=== PATIENT | female | born 1935 | race Caucasian/White ===

== ENCOUNTER → 2017-06-20 | Outpatient (CLI) | payer OTHER, MEDICAID | LOC: RAD 13:26 | PROVIDERS: ATTEND Internal Medicine | DX: R60.0 Localized edema (principal); M79.89 Other specified soft tissue disorders | CPT/HCPCS: 93306 ==

== ENCOUNTER 2022-02-10 08:44 | Inpatient (IN) ==
--- NOTE | 2022-02-10 09:05 | DR.AMS ---
HPI Time Seen Time Seen by Provider: 02/10/22 09:15 HPI Comment HPI Comment: PATIENT IS 86YR OLD FEMALE IN ER FROM [facility] WITH INCREASING COVID-19 Coronavirus risk:travel/contact w/high risk person: No Has patient experienced Coronavirus symptoms: No Reviewed Nurses Notes Reviewed: Yes Source History Provided: Parent and Skilled Nursing Mode of Arrival Mode of Arrival: Stretcher PMH PMH Past Medical History: Alzheimers, Anxiety, Arthritis, Coronary Artery Disease, Dementia, Depression, Dyslipidemia, Hypertension and Renal Disease Past Surgical History: Yes Surgical History: Unknown Social History Do you use any recreational Drugs:: No ROS Review of Systems Constitutional: See HPI, Weakness and Fatigue; negative Fever Eyes: No Symptoms Reported and See HPI ENTM: No Symptoms Reported and See HPI Respiratoy: See HPI and Short of Breath Cardiovascular: No Symptoms Reported and See HPI PE Vitals Vital Signs: Temp Pulse Resp BP BP Pulse Ox O2 Del Method 02/10/22 12:45 51 L 27 H 02/10/22 12:31 112/60 02/10/22 12:31 52 L 28 H 02/10/22 12:30 52 L 29 H 02/10/22 12:15 124 H 39 H 02/10/22 12:00 138/64 02/10/22 12:15 52 L 02/10/22 12:00 60 33 H 02/10/22 11:45 127 H 31 H 02/10/22 11:45 140/62 02/10/22 11:30 109 H 40 H 97 02/10/22 12:00 94.4 F L 02/10/22 12:01 138/64 02/10/22 11:15 47 L 29 H 97 02/10/22 11:15 141/64 02/10/22 11:13 55 L 26 H 97 02/10/22 11:13 160/78 02/10/22 11:12 48 L 26 H 98 02/10/22 11:12 127/60 02/10/22 11:00 50 L 31 H 98 02/10/22 10:45 41 L 25 H 99 02/10/22 10:38 44 L 22 02/10/22 10:38 110/56 02/10/22 10:30 39 L 20 99 02/10/22 10:15 37 L 35 H 98 10/08/22 10:02 102/50 02/10/22 10:02 38 L 22 99 02/10/22 10:00 39 L 22 99 02/10/22 09:45 69 23 99 02/10/22 09:31 22 98 02/10/22 09:31 117/59 02/10/22 09:30 99 02/10/22 09:17 42 L 21 99 02/10/22 08:45 92.0 F L 40 L 20 135/82 98 Room Air 02/08/22 19:12 113/86 General Limitations: No Limitations General Appearance: Alert and In No Apparent Distress Head Head Exam: Normal Inspection Head Exam Physical: Other (NONE NOTED.) Eyes Eye exam: Normal Appearance and PERRL; negative Scleral Icterus or Conjunctival Injection Pupils: Regular, Round: Bilateral and Reactive: Bilateral ENT ENT Exam: Normal Exam, Normal Oropharynx, Normal External Ear Exam and TM's Normal Bilaterally External Ear Exam: negative Normal External Inspection or Mastoid Tenderness TM/Canal Exam: Bilateral: Normal Nose Exam: Normal Nose Exam Mouth Exam: Normal Inspection; negative Lip Swelling or Tongue Swelling Throat Exam: Normal Inspection; negative Tonsillar Erythema, Tonsillomegaly or Tonsillar Exudate Neck Neck Exam: Normal Inspection and Trachea Midline; negative Tenderness Chest Chest Inspection: Normal Inspection and Symmetric Chest Wall Rise; negative Tenderness Respiratory Respiratory Exam: Normal Lung Sounds Bilat; negative Accessory Muscle Use, Chest Wall Tenderness or Respiratory Distress Respiratory Exam: Bilateral: Rhonchi Cardiovascular Cardiovascular Exam: Regular Rate, Normal Rhythm and Normal Heart Sounds; negative Systolic Murmur or Diastolic Murmur Abdominal Exam Abdominal Exam: Normal Inspection, Normal Bowel Sounds and Soft; negative Tenderness Extremities Extremities Exam: Normal Inspection and Normal Capillary Refill Back Back Exam: Normal Inspection; negative (R) CVA Tenderness or (L) CVA Tenderness Psychological Psychiatric Exam: Normal Affect Skin Skin Exam: Intact ROR Labs Reviewed Laboratory Results Reviewed?: Yes Result Diagrams: 02/11/22 04:55 02/11/22 04:05 Laboratory: WBC 5.8 X10^3/uL (3.6-10.0) 02/10/22 09:34 RBC 4.15 X10^6/uL (3.5-5.4) 02/10/22 09:34 Hgb 11.4 g/dL (12.0-16.0) L 02/10/22 09:34 Hct 34.8 % (36.0-47.0) L 02/10/22 09:34 MCV 83.9 fL (80.0-100.0) 02/10/22 09:34 MCH 27.5 pg (27.0-34.0) 02/10/22 09:34 MCHC 32.7 g/dL (33.0-35.0) L 02/10/22 09:34 RDW 16.0 % (11.6-16.5) 02/10/22 09:34 Plt Count 186 X10^3/uL (150.0-450.0) 02/10/22 09:34 MPV 9.2 fL (7.4-11.0) 02/10/22 09:34 Neut % (Auto) 76.4 % (42.0-75.0) H 02/10/22 09:34 Lymph % (Auto) 12.4 % (21.0-51.0) L 02/10/22 09:34 [place] % (Auto) 8.1 % (0.0-13.0) 02/10/22 09:34 Eos % (Auto) 2.4 % (0.9-2.9) 02/10/22 09:34 Baso % (Auto) 0.7 % (0.2-1.0) 02/10/22 09:34 Neut # (Auto) 4.4 x10^3/uL (2.2-4.8) 02/10/22 09:34 Lymph # (Auto) 0.7 X10^3/uL (1.3-2.9) L 02/10/22 09:34 [place] # (Auto) 0.5 x10^3/uL (0.3-0.8) 02/10/22 09:34 Eos # (Auto) 0.1 x10^3/uL (0.0-0.2) 02/10/22 09:34 Baso # (Auto) 0.0 X10^3/uL (0.0-0.1) 02/10/22 09:34 Absolute Nucleated RBC 0.2 /100WBC 02/10/22 09:34 Sodium 137 mmol/L (136-145) 02/10/22 09:34 Corrected Sodium TNP 02/10/22 09:34 Potassium 5.3 mmol/L (3.5-5.1) H 02/10/22 09:34 Chloride 107 mmol/L (98-107) 02/10/22 09:34 Carbon Dioxide 26.3 mmol/L (21-32) 02/10/22 09:34 BUN 31 mg/dL (7-18) H 02/10/22 09:34 Creatinine 1.21 mg/dL (0.55-1.02) H 02/10/22 09:34 Est GFR (MDRD) Af Amer 55 (>60) L 02/10/22 09:34 Est GFR (MDRD) Non-Af 45 (>60) L 02/10/22 09:34 Glucose 82 mg/dL (65-99) 02/10/22 09:34 Lactic Acid 1.1 mmol/L (0.4-2.0) 02/10/22 09:34 Calcium 8.7 mg/dL (8.5-10.1) 02/10/22 09:34 Corrected Calcium 9.7 mg/dL (8.5-10.1) 02/10/22 09:34 Total Bilirubin 0.20 mg/dL (0.2-1.0) 02/10/22 09:34 AST 34 Units/L (15-37) 02/10/22 09:34 ALT 50 Units/L (12-78) 02/10/22 09:34 Alkaline Phosphatase 137 Units/L (46-116) H 02/10/22 09:34 Creatine Kinase 50 Units/L (26-192) 02/10/22 09:34 Troponin I High Sens 58.3 ng/L (4.0-60.0) 02/10/22 09:34 B-Natriuretic Peptide 463 pg/mL (0-79) H 02/10/22 09:34 Total Protein 6.9 g/dL (6.4-8.2) 02/10/22 09:34 Albumin 2.8 g/dL (3.4-5.0) L 02/10/22 09:34 Globulin 4.1 g/dL (2.5-4.5) 02/10/22 09:34 Albumin/Globulin Ratio 0.7 Ratio (1.1-2.1) L 02/10/22 09:34 XRAY XRAY Interpreted by: Radiologist (REPORT NOTED.) and Self EKG Rate: 41 [place]: Normal Rhythm: SB Block: None Hypertrophy: None ST: Nonsp Opioid Opioid Risk Tool Age (Gonzalez box if 16-45): No History of Preadolescent Sexual Abuse: No Total: 0 Total Score Risk Category: Low Risk Copyright: Morales LR predicting aberrant behaviors Discharge Plan Diagnosis Discharge Problem: Pneumonia, Hypothermia, Bradycardia, severe sinus, Altered mental status Discharge Plan Patient Disposition: 09 ADMITTED INPATIENT Condition: Stable
[2022-02-10 09:47] LABS: BASOPHILS % (AUTO) 0.7 % (0.2-1.0); EOSINOPHILS # (AUTO) 0.1 x10^3/uL (0.0-0.2); EOSINOPHILS % (AUTO) 2.4 % (0.9-2.9); HEMATOCRIT 34.8 % (36.0-47.0); HEMOGLOBIN 11.4 g/dL (12.0-16.0); LYMPHOCYTES # (AUTO) 0.7 X10^3/uL (1.3-2.9); LYMPHOCYTES % (AUTO) 12.4 % (21.0-51.0); MEAN CORPUSCULAR HEMOGLOBIN 27.5 pg (27.0-34.0); MEAN CORPUSCULAR HGB CONC 32.7 g/dL (33.0-35.0); MEAN CORPUSCULAR VOLUME 83.9 fL (80.0-100.0); MEAN PLATELET VOLUME 9.2 fL (7.4-11.0); MONOCYTES # (AUTO) 0.5 x10^3/uL (0.3-0.8); MONOCYTES % (AUTO) 8.1 % (0.0-13.0); NEUTROPHILS # (AUTO) 4.4 x10^3/uL (2.2-4.8); NEUTROPHILS % (AUTO) 76.4 % (42.0-75.0); RED BLOOD COUNT 4.15 X10^6/uL (3.5-5.4); WHITE BLOOD COUNT 5.8 X10^3/uL (3.6-10.0)
[2022-02-10] MEDS ORDERED: NS 1,000 ML IV 1,000 ML ONE (09:56)
[2022-02-10 10:01] LABS: ALANINE AMINOTRANSFERASE 50 Units/L (12-78); ALBUMIN 2.8 g/dL (3.4-5.0); ALKALINE PHOSPHATASE 137 Units/L (46-116); ASPARTATE AMINO TRANSFERASE 34 Units/L (15-37); BLOOD UREA NITROGEN 31 mg/dL (7-18); CALCIUM 8.7 mg/dL (8.5-10.1); CARBON DIOXIDE 26.3 mmol/L (21-32); CHLORIDE 107 mmol/L (98-107); COR CA(FOR HYPOALB) 9.7 mg/dL (8.5-10.1); CREATINE KINASE 50 Units/L (26-192); CREATININE 1.21 mg/dL (0.55-1.02); SODIUM 137 mmol/L (136-145); TOTAL PROTEIN 6.9 g/dL (6.4-8.2); eGFR NON BLACK RACES 45 (>60)
[2022-02-10] MEDS: NS 1,000 ML IV 1,000 ML IV SCH ×3 (10:04→21:04)
[2022-02-10 10:50] LABS: LACTIC ACID 1.1 mmol/L (0.4-2.0)
--- NOTE | 2022-02-10 11:11 | RAD ---
HISTORYSOB, SLOW TO RESPOND HTN, ORTHOSTUDYCHEST, 1 [id number]/06/2022.FINDINGSThe trachea is midline. The cardiac silhouette is enlarged but stable. The pulmonary blood flow is congested. There is coarsening of the interstitial markings suggestive of edema mid there continues to be a nonspecific central right upper lobe opacity. There is increased opacity along the left hemidiaphragm. There is no convincing pleural effusion. The bony thorax is unremarkable.IMPRESSIONIncreasing interstitial prominence with persistent right upper lobe and new left base opacities.Electronically signed by: Winston Mcneill (Feb 10, 2022 11:09:47)
[2022-02-10] MEDS ORDERED: ROCEPHIN 1 GRAM IV PREMIX 1 G/50 ML IV.SOLN. IV ONE (12:06)
[2022-02-10] MEDS ORDERED: ROCEPHIN VIAL 1 GRAM ONE (12:09)
[2022-02-10] MEDS ORDERED: NS 100 ML IV 100 ML ONE (12:09)
[2022-02-10] MEDS: ZOSYN VIAL 3.375 GRAMS 3.375 G in NS 100 ML IV 100 ML IV SCH ×2 (16:30→21:31)
[2022-02-10] MEDS: DUONEB 0.5 MG/3 MG (3 mL) NEB SCH ×2 (16:48→21:00)
[2022-02-10] MEDS ORDERED: PHARMACY CONSULT LTC MEDICATIONS XX SCH (17:00)
[2022-02-10] MEDS: PULMICORT NEB TX 0.5 MG NEB SCH (21:00)
[2022-02-10 22:05] LABS: BILIRUBIN,URINE NEGATIVE (NEGATIVE); BLOOD/HEMOGLOBIN,URINE NEGATIVE (NEGATIVE); GLUCOSE, URINE NEGATIVE (NEGATIVE); KETONES,URINE NEGATIVE (NEGATIVE); LEUKOCYTE ESTERASE ,URINE NEGATIVE (NEGATIVE); NITRITES,URINE NEGATIVE (NEGATIVE); PROTEIN,URINE NEGATIVE (NEGATIVE); UROBILINOGEN,URINE NORMAL (NORMAL)
[2022-02-10 22:06] LABS: APPEARANCE,URINE CLEAR (CLEAR); COLOR,URINE PALE YELLOW (YELLOW)
[2022-02-11] MEDS: DUONEB 0.5 MG/3 MG (3 mL) NEB SCH ×6 (01:06→20:20)
[2022-02-11] MEDS: NS 1,000 ML IV 1,000 ML IV SCH ×3 (03:44→20:21)
[2022-02-11] MEDS: ZOSYN VIAL 3.375 GRAMS 3.375 G in NS 100 ML IV 100 ML IV SCH ×3 (05:18→20:59)
[2022-02-11 05:43] LABS: BASOPHILS % (AUTO) 0.4 % (0.2-1.0); EOSINOPHILS # (AUTO) 0.1 x10^3/uL (0.0-0.2); EOSINOPHILS % (AUTO) 0.6 % (0.9-2.9); HEMOGLOBIN 10.5 g/dL (12.0-16.0); LYMPHOCYTES % (AUTO) 12.5 % (21.0-51.0); MEAN CORPUSCULAR HEMOGLOBIN 27.3 pg (27.0-34.0); MEAN CORPUSCULAR HGB CONC 32.8 g/dL (33.0-35.0); MEAN CORPUSCULAR VOLUME 83.1 fL (80.0-100.0); MEAN PLATELET VOLUME 9.7 fL (7.4-11.0); MONOCYTES % (AUTO) 12.6 % (0.0-13.0); NEUTROPHILS # (AUTO) 5.9 x10^3/uL (2.2-4.8); NEUTROPHILS % (AUTO) 73.9 % (42.0-75.0); RED BLOOD COUNT 3.86 X10^6/uL (3.5-5.4); RED CELL DISTRIBUTION WIDTH 16.2 % (11.6-16.5); WHITE BLOOD COUNT 7.9 X10^3/uL (3.6-10.0)
[2022-02-11 05:57] LABS: ALANINE AMINOTRANSFERASE 38 Units/L (12-78); ALBUMIN 2.6 g/dL (3.4-5.0); ALKALINE PHOSPHATASE 119 Units/L (46-116); ASPARTATE AMINO TRANSFERASE 27 Units/L (15-37); BLOOD UREA NITROGEN 30 mg/dL (7-18); CALCIUM 8.1 mg/dL (8.5-10.1); CARBON DIOXIDE 25.5 mmol/L (21-32); CHLORIDE 110 mmol/L (98-107); COR CA(FOR HYPOALB) 9.2 mg/dL (8.5-10.1); CREATININE 1.77 mg/dL (0.55-1.02); SODIUM 141 mmol/L (136-145); TOTAL PROTEIN 6.4 g/dL (6.4-8.2); eGFR NON BLACK RACES 29 (>60)
[2022-02-11] MEDS: PULMICORT NEB TX 0.5 MG NEB SCH ×2 (08:45→20:20)
[2022-02-11] MEDS: VSL#3 PO SCH (10:10)
[2022-02-11] MEDS: LOPRESSOR TAB 25 MG PO SCH ×2 (11:10→20:20)
[2022-02-11] MEDS: LASIX PO SCH (11:10)
--- NOTE | 2022-02-11 14:01 | DR.H&P ---
H&P History & Physical for Day of: H&P Date: 02/11/22 Chief Complaint Chief Complaint: Altered mental status Shortness of breath Allergies Allergies Allergy/AdvReac Type Severity Reaction Status Date / Time codeine Allergy Verified 01/06/20 16:25 History of Present Illness History of Present Illness: Pt is a 86 year old female presenting from with altered mental status and shortness of breath. In the ED, she was found to have pneumonia and was placed on supplemental oxygen. Labs/imaging: Wbc 7.9, Hgb 10.5, Plt 186, Na 141, K 5.3, Creatinine 1.77, Glucose 75, UA negative, COVID/RSV/Influenza negative, Blood culture pending, CXR was obtained that reavealed: Increasing interstitial prominence with persistent right upper lobe and new left base opacities. She was started on IVF NS@KVO, antibiotics: IV Zosyn q8h, and supplemental oxygen. She is currently requiring 2L nasal cannula. Order scheduled bronchodilators. Will wean/titrate supplemental oxygen as tolerated. Restart home medications. Continue to closely monitor and follow up labs/imaging. Past Medical History Past Medical History: Alzheimers, Anxiety, Arthritis, Coronary Artery Disease, Dementia, Depression, Dyslipidemia, Hypertension and Renal Disease Past Surgical History Surgical History: Ortho Surgery Social History Does patient currently use any type of tobacco product: No Have you used tobacco products in the last 12 months: No Type of Tobacco Use: None Does any household member use tobacco: No Alcohol Use: None Drug Use: None Medications Home Medications: codeine Allergy (Verified 01/06/20 16:25) Labs Result Diagrams: 02/12/22 04:45 02/12/22 04:45 Labs: Laboratory WBC 7.9 X10^3/uL (3.6-10.0) 02/11/22 04:55 RBC 3.86 X10^6/uL (3.5-5.4) 02/11/22 04:55 Hgb 10.5 g/dL (12.0-16.0) L 02/11/22 04:55 Hct 32.0 % (36.0-47.0) L 02/11/22 04:55 MCV 83.1 fL (80.0-100.0) 02/11/22 04:55 MCH 27.3 pg (27.0-34.0) 02/11/22 04:55 MCHC 32.8 g/dL (33.0-35.0) L 02/11/22 04:55 RDW 16.2 % (11.6-16.5) 02/11/22 04:55 Plt Count 186 X10^3/uL (150.0-450.0) 02/11/22 04:55 MPV 9.7 fL (7.4-11.0) 02/11/22 04:55 Neut % (Auto) 73.9 % (42.0-75.0) 02/11/22 04:55 Lymph % (Auto) 12.5 % (21.0-51.0) L 02/11/22 04:55 [place] % (Auto) 12.6 % (0.0-13.0) 02/11/22 04:55 Eos % (Auto) 0.6 % (0.9-2.9) L 02/11/22 04:55 Baso % (Auto) 0.4 % (0.2-1.0) 02/11/22 04:55 Neut # (Auto) 5.9 x10^3/uL (2.2-4.8) H 02/11/22 04:55 Lymph # (Auto) 1.0 X10^3/uL (1.3-2.9) L 02/11/22 04:55 [place] # (Auto) 1.0 x10^3/uL (0.3-0.8) H 02/11/22 04:55 Eos # (Auto) 0.1 x10^3/uL (0.0-0.2) 02/11/22 04:55 Baso # (Auto) 0.0 X10^3/uL (0.0-0.1) 02/11/22 04:55 Absolute Nucleated RBC 0.1 /100WBC 02/11/22 04:55 Sodium 141 mmol/L (136-145) 02/11/22 04:05 Corrected Sodium TNP 02/11/22 04:05 Potassium 5.3 mmol/L (3.5-5.1) H 02/11/22 04:05 Chloride 110 mmol/L (98-107) H 02/11/22 04:05 Carbon Dioxide 25.5 mmol/L (21-32) 02/11/22 04:05 BUN 30 mg/dL (7-18) H 02/11/22 04:05 Creatinine 1.77 mg/dL (0.55-1.02) H 02/11/22 04:05 Est GFR (MDRD) Af Amer 35 (>60) L 02/11/22 04:05 Est GFR (MDRD) Non-Af 29 (>60) L 02/11/22 04:05 Glucose 75 mg/dL (65-99) 02/11/22 04:05 Lactic Acid 1.1 mmol/L (0.4-2.0) 02/10/22 09:34 Calcium 8.1 mg/dL (8.5-10.1) L 02/11/22 04:05 Corrected Calcium 9.2 mg/dL (8.5-10.1) 02/11/22 04:05 Total Bilirubin 0.30 mg/dL (0.2-1.0) 02/11/22 04:05 AST 27 Units/L (15-37) 02/11/22 04:05 ALT 38 Units/L (12-78) 02/11/22 04:05 Alkaline Phosphatase 119 Units/L (46-116) H 02/11/22 04:05 Creatine Kinase 50 Units/L (26-192) 02/10/22 09:34 Troponin I High Sens 58.3 ng/L (4.0-60.0) 02/10/22 09:34 B-Natriuretic Peptide 463 pg/mL (0-79) H 02/10/22 09:34 Total Protein 6.4 g/dL (6.4-8.2) 02/11/22 04:05 Albumin 2.6 g/dL (3.4-5.0) L 02/11/22 04:05 Globulin 3.8 g/dL (2.5-4.5) 02/11/22 04:05 Albumin/Globulin Ratio 0.7 Ratio (1.1-2.1) L 02/11/22 04:05 Specimen Type Catherized urine 02/10/22 21:46 Urine Color Pale yellow (YELLOW) 02/10/22 21:46 Urine Appearance Clear (CLEAR) 02/10/22 21:46 Urine pH 8.0 (5.0 - 8.0) 02/10/22 21:46 Ur Specific [place] 1.020 (1.000-1.030) 02/10/22 21:46 Urine Protein Negative (NEGATIVE) 02/10/22 21:46 Urine Glucose (UA) Negative (NEGATIVE) 02/10/22 21:46 Urine Ketones Negative (NEGATIVE) 02/10/22 21:46 Urine Blood Negative (NEGATIVE) 02/10/22 21:46 Urine Nitrite Negative (NEGATIVE) 02/10/22 21:46 Urine Bilirubin Negative (NEGATIVE) 02/10/22 21:46 Urine Urobilinogen Normal (NORMAL) 02/10/22 21:46 Ur Leukocyte Esterase Negative (NEGATIVE) 02/10/22 21:46 SARS-CoV-2 (PCR) Negative (NEGATIVE) 02/10/22 13:12 Influenza Type A (PCR) Negative (NEGATIVE) 02/10/22 13:12 Influenza Type B (PCR) Negative (NEGATIVE) 02/10/22 13:12 RSV (PCR) Negative (NEGATIVE) 02/10/22 13:12 Review of Systems Constitutional: Weakness Eyes: No Symptoms Reported ENT: No Symptoms Reported Respiratory: Cough and Shortness of Breath Cardiovascular: No Symptoms Reported Gastrointestinal: No Symptoms Reported Genitourinary: No Symptoms Reported Musculoskeletal: No Symptoms Reported Skin: No Symptoms Reported Neurological: Confusion Physical Exam Vital Signs: Temperature 97.5 F Pulse Rate [Left Brachial] 75 Pulse Rate 78 Respiratory Rate 28 Blood Pressure [Left Arm] 129/61 Blood Pressure 113/55 O2 Sat by Pulse Oximetry 98 Oriented: Other (intermittent confusion, history of dementia) Eyes: Normal Ear: Normal Nose: Normal Throat: Normal Respiratory: Diminished Throughout and Rhonchi Throughout Cardiovascular: Normal : Normal Auscultation: Bowel Sounds: Normal Palpation: Normal Tenderness: Normal Skin: Normal Musculoskeletal: Normal Assessment/Plan (1) Pneumonia: Status: Acute Plan: IV antibiotics Supplemental oxygen Bronchodilators (2) Altered mental status: Status: Acute Review H&P Reviewed: Yes Patient was examined?: Yes
[2022-02-11] MEDS: ARICEPT TAB 5 MG PO SCH (20:19)
[2022-02-11] MEDS: NAMENDA TAB 10 MG PO SCH (20:20)
[2022-02-11] MEDS: COLACE CAP 100 MG PO SCH (20:20)
[2022-02-11] MEDS: LIPITOR TAB 10 MG PO SCH (20:20)
[2022-02-12] MEDS: DUONEB 0.5 MG/3 MG (3 mL) NEB SCH ×6 (00:35→20:30)
[2022-02-12 05:06] LABS: BASOPHILS # (AUTO) 0.1 X10^3/uL (0.0-0.1); BASOPHILS % (AUTO) 0.9 % (0.2-1.0); EOSINOPHILS # (AUTO) 0.1 x10^3/uL (0.0-0.2); HEMOGLOBIN 9.9 g/dL (12.0-16.0); LYMPHOCYTES # (AUTO) 0.9 X10^3/uL (1.3-2.9); LYMPHOCYTES % (AUTO) 12.6 % (21.0-51.0); MEAN CORPUSCULAR HEMOGLOBIN 27.4 pg (27.0-34.0); MEAN CORPUSCULAR HGB CONC 33.2 g/dL (33.0-35.0); MEAN CORPUSCULAR VOLUME 82.8 fL (80.0-100.0); MEAN PLATELET VOLUME 9.3 fL (7.4-11.0); MONOCYTES # (AUTO) 0.9 x10^3/uL (0.3-0.8); MONOCYTES % (AUTO) 12.7 % (0.0-13.0); NEUTROPHILS % (AUTO) 71.8 % (42.0-75.0); RED BLOOD COUNT 3.63 X10^6/uL (3.5-5.4); RED CELL DISTRIBUTION WIDTH 16.2 % (11.6-16.5); WHITE BLOOD COUNT 6.9 X10^3/uL (3.6-10.0)
[2022-02-12 05:21] LABS: ALANINE AMINOTRANSFERASE 36 Units/L (12-78); ALBUMIN 2.7 g/dL (3.4-5.0); ALKALINE PHOSPHATASE 116 Units/L (46-116); ASPARTATE AMINO TRANSFERASE 22 Units/L (15-37); BLOOD UREA NITROGEN 27 mg/dL (7-18); CALCIUM 8.5 mg/dL (8.5-10.1); CARBON DIOXIDE 26.4 mmol/L (21-32); CHLORIDE 108 mmol/L (98-107); COR CA(FOR HYPOALB) 9.5 mg/dL (8.5-10.1); CREATININE 1.58 mg/dL (0.55-1.02); SODIUM 140 mmol/L (136-145); TOTAL PROTEIN 6.7 g/dL (6.4-8.2); eGFR NON BLACK RACES 33 (>60)
[2022-02-12] MEDS: NS 1,000 ML IV 1,000 ML IV SCH ×3 (06:07→21:46)
[2022-02-12] MEDS: ZOSYN VIAL 3.375 GRAMS 3.375 G in NS 100 ML IV 100 ML IV SCH ×3 (06:07→21:46)
--- NOTE | 2022-02-12 08:01 | RAD ---
HISTORYPneumonia SOBSTUDYPortable AP [id number]/08/2022FINDINGSHeart size is stable, upper-normal in transverse diameter. Similar mild elevation left diaphragm. Nonspecific interstitial prominence in the left lower lung accentuated by diaphragm elevation. The right chest is clear. There is no definite consolidation or pleural effusion.IMPRESSIONSimilar borderline cardiomegaly. Mild subsegmental atelectasis/infiltrate in the left base, accentuated by the adjacent left diaphragm elevation. No new abnormality identified.Electronically signed by: LUCIO PORTER (Feb 12, 2022 08:00:21)
[2022-02-12] MEDS: PULMICORT NEB TX 0.5 MG NEB SCH ×2 (08:40→20:30)
[2022-02-12] MEDS: LOPRESSOR TAB 25 MG PO SCH ×2 (09:43→20:51)
[2022-02-12] MEDS: ASPIRIN EC 81 MG PO SCH (09:44)
[2022-02-12] MEDS: LOVENOX INJ 40 MG SYR SC SCH (09:45)
[2022-02-12] MEDS: LASIX PO SCH (09:45)
[2022-02-12] MEDS: COLACE CAP 100 MG PO SCH ×2 (09:45→20:50)
[2022-02-12] MEDS: NAMENDA TAB 10 MG PO SCH ×2 (09:46→20:51)
[2022-02-12] MEDS: NORVASC TAB 5 MG PO SCH (09:46)
[2022-02-12] MEDS: VSL#3 PO SCH (09:46)
[2022-02-12] MEDS: ARICEPT TAB 5 MG PO SCH (20:50)
[2022-02-12] MEDS: LIPITOR TAB 10 MG PO SCH (20:50)
[2022-02-13] MEDS: DUONEB 0.5 MG/3 MG (3 mL) NEB SCH ×6 (00:16→20:40)
[2022-02-13] MEDS: NS 1,000 ML IV 1,000 ML IV SCH (05:18)
[2022-02-13] MEDS: ZOSYN VIAL 3.375 GRAMS 3.375 G in NS 100 ML IV 100 ML IV SCH ×3 (05:19→22:18)
[2022-02-13 06:07] LABS: BASOPHILS # (AUTO) 0.1 X10^3/uL (0.0-0.1); BASOPHILS % (AUTO) 0.9 % (0.2-1.0); EOSINOPHILS # (AUTO) 0.3 x10^3/uL (0.0-0.2); EOSINOPHILS % (AUTO) 3.7 % (0.9-2.9); HEMATOCRIT 32.3 % (36.0-47.0); HEMOGLOBIN 10.7 g/dL (12.0-16.0); LYMPHOCYTES # (AUTO) 1.2 X10^3/uL (1.3-2.9); LYMPHOCYTES % (AUTO) 14.2 % (21.0-51.0); MEAN CORPUSCULAR HEMOGLOBIN 27.6 pg (27.0-34.0); MEAN CORPUSCULAR HGB CONC 33.2 g/dL (33.0-35.0); MEAN CORPUSCULAR VOLUME 83.2 fL (80.0-100.0); MEAN PLATELET VOLUME 9.5 fL (7.4-11.0); MONOCYTES # (AUTO) 0.8 x10^3/uL (0.3-0.8); MONOCYTES % (AUTO) 9.9 % (0.0-13.0); NEUTROPHILS # (AUTO) 5.9 x10^3/uL (2.2-4.8); NEUTROPHILS % (AUTO) 71.3 % (42.0-75.0); RED BLOOD COUNT 3.89 X10^6/uL (3.5-5.4); RED CELL DISTRIBUTION WIDTH 16.2 % (11.6-16.5); WHITE BLOOD COUNT 8.3 X10^3/uL (3.6-10.0)
[2022-02-13 06:24] LABS: ALANINE AMINOTRANSFERASE 38 Units/L (12-78); ALKALINE PHOSPHATASE 122 Units/L (46-116); ASPARTATE AMINO TRANSFERASE 30 Units/L (15-37); BLOOD UREA NITROGEN 27 mg/dL (7-18); CALCIUM 8.9 mg/dL (8.5-10.1); CHLORIDE 105 mmol/L (98-107); COR CA(FOR HYPOALB) 9.7 mg/dL (8.5-10.1); CREATININE 1.63 mg/dL (0.55-1.02); SODIUM 138 mmol/L (136-145); TOTAL PROTEIN 7.2 g/dL (6.4-8.2); eGFR NON BLACK RACES 32 (>60)
--- NOTE | 2022-02-13 07:31 | RAD ---
HISTORYPneumonia, shortness of breathSTUDYChest AP [id number]/10/2022FINDINGSPati ent is rotated to the right. Heart remains enlarged. No definite congestive heart failure is identified. The aorta is calcified and mildly ectatic. Interstitial lung changes are present bilaterally left greater than right not significantly changed from the prior examination. There is questionable abnormal parenchymal density medially in the right upper lobe. Pneumonia is not excluded. There is also some widening of the upper mediastinum possibly vascular in origin however other etiologies are not excluded. Chest CT with contrast is recommended for further evaluation. Left hemidiaphragm is chronically elevated. No pleural effusions are identified. 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 Chest CT with contrast is recommended for further evaluationElectronically signed by: DAMION IBRAHIM (Feb 13, 2022 07:30:13)
[2022-02-13] MEDS: PULMICORT NEB TX 0.5 MG NEB SCH ×2 (08:30→20:40)
[2022-02-13] MEDS: LOPRESSOR TAB 25 MG PO SCH ×2 (08:45→22:17)
[2022-02-13] MEDS: LASIX PO SCH (08:45)
[2022-02-13] MEDS: VSL#3 PO SCH (08:45)
[2022-02-13] MEDS: NORVASC TAB 5 MG PO SCH (08:45)
[2022-02-13] MEDS: ASPIRIN EC 81 MG PO SCH (08:45)
[2022-02-13] MEDS: COLACE CAP 100 MG PO SCH ×2 (08:45→22:16)
[2022-02-13] MEDS: NAMENDA TAB 10 MG PO SCH ×2 (08:45→22:16)
--- NOTE | 2022-02-13 12:18 | PCM.PROG ---
Progress Note - Progress Note for Day of Date of Exam: 02/12/22 - Subjective Subjective: IS A 86 YEAR OLD PATIENT OF OURS. SHE IS A RESIDENT OF [facility]. SHE WAS ADMITTED INPATIENT STATUS FOR TREATMENT OF PNEUMONIA, HYPOTHERMIA, BRADYCARDIA, AND AMS. TODAY, SHE IS LAYING IN BED WITH EYES CLOSED ON MORNING ROUNDS. SHE OPENS EYES TO VERBAL STIMULI. SHE COMPLAINS OF WEAKNESS AND SHORTNESS OF BREATH THIS MORNING. ON EXAMINATION, HEART IS REGULAR IN RATE AND RHYTHM. BILATERAL LUNGS ARE NOTED WITH SCATTERED WHEEZING AND RHONCHI THROUGHOUT. ABDOMEN IS ROUND, SOFT, AND NON-TENDER WITH NORMAL BOWEL SOUNDS NOTED IN ALL QUADRANTS. 1+ PITTING EDEMA NOTED TO LOWER EXTREMITIES. HER VITALS THIS MORNING ARE: 97.6-68-20-99%-154/70. SHE IS CURRENTLY UTILIZING OX YGEN VIA NASAL CANNULA AT 2 LPM. LABS WERE OBTAINED. WBC 6.9, RBC 3.63, HGB 9.9, HCT 30.0, SODIUM 140, POTASSIUM 5.0, CHLORIDE 108, BUN 27, CREATININE 1.58, GLUCOSE 60, CALCIUM 8.5, AST 22, ALT 36, ALK PHOS 116, BNP 213, TOTAL PROTEIN 6.7, ALBUMIN 2.7. BLOOD CULTURES ARE PENDING. A CHEST XRAY WAS OBTAINED AND REVEALED: Similar borderline cardiomegaly. Mild subsegmental atelectasis/infiltrate in the left base, accentuated by the adjacent left diaphragm elevation. No new abnormality identified. SHE IS CURRENTLY RECEIVING NORMAL SALINE AT KVO, ZOSYN 3.375G IV TID, DUONEBS Q4H, PULMICORT NEBS BID, LOVENOX 40MG SC DAILY, AND HER HOME MEDICATIONS WERE RESUMED. WE WILL CONTINUE WITH CURRENT PLAN OF CARE TODAY. OTHERWISE, WE PLAN TO FOLLOW-UP WITH AM LABS AND CHEST XRAY AND CONTINUE TO MONITOR. TIME SPENT ON CLINICAL ASSESSMENT, REVIWING LABS AND IMAGING, DECISION MAKING, AND DOCUMENTATION GREATER THAN 45 MINUTES. - Past Medical Family Social History Past Med/Fam/Surg Hx: No changes since H&P Allergies: Allergies codeine Allergy (Verified 01/06/20 16:25) - Review of Systems ROS: No change since H&P - Vital Signs and I&O's Vital Signs: Temperature 97.4 F Pulse Rate [Left Brachial] 63 Pulse Rate 61 Respiratory Rate 20 Blood Pressure [Left Arm] 164/72 Blood Pressure 113/55 O2 Sat by Pulse Oximetry 98 Intake and Output: Intake & Output 02/11/22 02/12/22 02/13/22 02/14/22 11:59 11:59 11:59 11:59 Intake Total 1849 876 / 876 1281 / 1281 Balance 1849 876 / 876 1281 / 1281 - Physical Exam Oriented: Other (intermittent confusion, history of dementia) Eyes: Normal Ear: Normal Nose: Normal Throat: Normal Respiratory: Generalized, Wheezes, Rhonchi Cardiovascular: Normal : Normal Auscultation: Bowel Sounds: Normal Palpation: Normal Tenderness: Normal Skin: Normal Musculoskeletal: Normal Psychiatric: Normal Mood Description: Calm Affect: Normal Speech Pattern: Clear, Excessive - Laboratory and Diagnostics Result Diagrams: 02/13/22 05:31 02/13/22 05:31 Labs: 02/10/22 09:34 Blood Blood Culture - Preliminary 02/10/22 09:34 Blood Blood Culture - Preliminary Laboratory WBC 8.3 X10^3/uL (3.6-10.0) 02/13/22 05:31 RBC 3.89 X10^6/uL (3.5-5.4) 02/13/22 05:31 Hgb 10.7 g/dL (12.0-16.0) L 02/13/22 05:31 Hct 32.3 % (36.0-47.0) L 02/13/22 05:31 MCV 83.2 fL (80.0-100.0) 02/13/22 05:31 MCH 27.6 pg (27.0-34.0) 02/13/22 05:31 MCHC 33.2 g/dL (33.0-35.0) 02/13/22 05:31 RDW 16.2 % (11.6-16.5) 02/13/22 05:31 Plt Count 175 X10^3/uL (150.0-450.0) 02/13/22 05:31 MPV 9.5 fL (7.4-11.0) 02/13/22 05:31 Neut % (Auto) 71.3 % (42.0-75.0) 02/13/22 05:31 Lymph % (Auto) 14.2 % (21.0-51.0) L 02/13/22 05:31 [place] % (Auto) 9.9 % (0.0-13.0) 02/13/22 05:31 Eos % (Auto) 3.7 % (0.9-2.9) H 02/13/22 05:31 Baso % (Auto) 0.9 % (0.2-1.0) 02/13/22 05:31 Neut # (Auto) 5.9 x10^3/uL (2.2-4.8) H 02/13/22 05:31 Lymph # (Auto) 1.2 X10^3/uL (1.3-2.9) L 02/13/22 05:31 [place] # (Auto) 0.8 x10^3/uL (0.3-0.8) 02/13/22 05:31 Eos # (Auto) 0.3 x10^3/uL (0.0-0.2) H 02/13/22 05:31 Baso # (Auto) 0.1 X10^3/uL (0.0-0.1) 02/13/22 05:31 Absolute Nucleated RBC 0.2 /100WBC 02/13/22 05:31 Sodium 138 mmol/L (136-145) 02/13/22 05:31 Corrected Sodium TNP 02/13/22 05:31 Potassium 4.5 mmol/L (3.5-5.1) 02/13/22 05:31 Chloride 105 mmol/L (98-107) 02/13/22 05:31 Carbon Dioxide 25.0 mmol/L (21-32) 02/13/22 05:31 BUN 27 mg/dL (7-18) H 02/13/22 05:31 Creatinine 1.63 mg/dL (0.55-1.02) H 02/13/22 05:31 Est GFR (MDRD) Af Amer 39 (>60) L 02/13/22 05:31 Est GFR (MDRD) Non-Af 32 (>60) L 02/13/22 05:31 Glucose 66 mg/dL (65-99) 02/13/22 05:31 Lactic Acid 1.1 mmol/L (0.4-2.0) 02/10/22 09:34 Calcium 8.9 mg/dL (8.5-10.1) 02/13/22 05:31 Corrected Calcium 9.7 mg/dL (8.5-10.1) 02/13/22 05:31 Total Bilirubin 0.60 mg/dL (0.2-1.0) 02/13/22 05:31 AST 30 Units/L (15-37) 02/13/22 05:31 ALT 38 Units/L (12-78) 02/13/22 05:31 Alkaline Phosphatase 122 Units/L (46-116) H 02/13/22 05:31 Creatine Kinase 50 Units/L (26-192) 02/10/22 09:34 Troponin I High Sens 58.3 ng/L (4.0-60.0) 02/10/22 09:34 B-Natriuretic Peptide 720 pg/mL (0-79) H* 02/13/22 05:31 Total Protein 7.2 g/dL (6.4-8.2) 02/13/22 05:31 Albumin 3.0 g/dL (3.4-5.0) L 02/13/22 05:31 Globulin 4.2 g/dL (2.5-4.5) 02/13/22 05:31 Albumin/Globulin Ratio 0.7 Ratio (1.1-2.1) L 02/13/22 05:31 Specimen Type Catherized urine 02/10/22 21:46 Urine Color Pale yellow (YELLOW) 02/10/22 21:46 Urine Appearance Clear (CLEAR) 02/10/22 21:46 Urine pH 8.0 (5.0 - 8.0) 02/10/22 21:46 Ur Specific [place] 1.020 (1.000-1.030) 02/10/22 21:46 Urine Protein Negative (NEGATIVE) 02/10/22 21:46 Urine Glucose (UA) Negative (NEGATIVE) 02/10/22 21:46 Urine Ketones Negative (NEGATIVE) 02/10/22 21:46 Urine Blood Negative (NEGATIVE) 02/10/22 21:46 Urine Nitrite Negative (NEGATIVE) 02/10/22 21:46 Urine Bilirubin Negative (NEGATIVE) 02/10/22 21:46 Urine Urobilinogen Normal (NORMAL) 02/10/22 21:46 Ur Leukocyte Esterase Negative (NEGATIVE) 02/10/22 21:46 SARS-CoV-2 (PCR) Negative (NEGATIVE) 02/10/22 13:12 Influenza Type A (PCR) Negative (NEGATIVE) 02/10/22 13:12 Influenza Type B (PCR) Negative (NEGATIVE) 02/10/22 13:12 RSV (PCR) Negative (NEGATIVE) 02/10/22 13:12 - Plan (1) Pneumonia Status: Acute Qualifiers: Pneumonia type: due to unspecified organism Laterality: left Lung location: lower lobe of lung Qualified Code(s): J18.9 - Pneumonia, unspecified organism Plan: IV antibiotics. Supplemental oxygen. Bronchodilators (2) Altered mental status Status: Acute Qualifiers: Altered mental status type: transient alteration of awareness Qualified Code(s): R40.4 - Transient alteration of awareness (3) Bradycardia, severe sinus Status: Resolved (4) Hypothermia Status: Resolved Qualifiers: Encounter type: initial encounter Qualified Code(s): T68.XXXA - Hypothermia, initial encounter (5) Dementia Status: Chronic Qualifiers: Dementia type: unspecified type Dementia severity: mild Dementia behavioral or psychological symptom: unspecified whether behavioral, psychotic, or mood disturbance or anxiety Qualified Code(s): F03.A0 - Unspecified dementia, mild, without behavioral disturbance, psychotic disturbance, mood disturbance, and anxiety (6) HTN (hypertension) Status: Chronic Qualifiers: Hypertension type: primary hypertension Qualified Code(s): I10 - Essential (primary) hypertension (7) Hyperlipidemia Status: Chronic Qualifiers: Hyperlipidemia type: mixed hyperlipidemia Qualified Code(s): E78.2 - Mixed hyperlipidemia
[2022-02-13] MEDS: LOVENOX INJ 40 MG SYR SC SCH (15:27)
[2022-02-13] MEDS: LIPITOR TAB 10 MG PO SCH (22:17)
[2022-02-13] MEDS: ARICEPT TAB 5 MG PO SCH (22:17)
[2022-02-14] MEDS: DUONEB 0.5 MG/3 MG (3 mL) NEB SCH ×6 (01:10→21:00)
[2022-02-14] MEDS: NS 1,000 ML IV 1,000 ML IV SCH ×4 (01:26→18:41)
[2022-02-14] MEDS: ZOSYN VIAL 3.375 GRAMS 3.375 G in NS 100 ML IV 100 ML IV SCH ×3 (05:39→21:08)
[2022-02-14 06:23] LABS: BASOPHILS # (AUTO) 0.1 X10^3/uL (0.0-0.1); BASOPHILS % (AUTO) 0.7 % (0.2-1.0); EOSINOPHILS # (AUTO) 0.2 x10^3/uL (0.0-0.2); EOSINOPHILS % (AUTO) 2.9 % (0.9-2.9); HEMATOCRIT 33.5 % (36.0-47.0); LYMPHOCYTES # (AUTO) 1.2 X10^3/uL (1.3-2.9); MEAN CORPUSCULAR HEMOGLOBIN 27.5 pg (27.0-34.0); MEAN CORPUSCULAR HGB CONC 32.9 g/dL (33.0-35.0); MEAN CORPUSCULAR VOLUME 83.8 fL (80.0-100.0); MEAN PLATELET VOLUME 9.2 fL (7.4-11.0); MONOCYTES # (AUTO) 0.9 x10^3/uL (0.3-0.8); NEUTROPHILS # (AUTO) 6.1 x10^3/uL (2.2-4.8); NEUTROPHILS % (AUTO) 71.4 % (42.0-75.0); RED CELL DISTRIBUTION WIDTH 16.2 % (11.6-16.5); WHITE BLOOD COUNT 8.5 X10^3/uL (3.6-10.0)
[2022-02-14 06:44] LABS: ALANINE AMINOTRANSFERASE 33 Units/L (12-78); ALBUMIN 3.1 g/dL (3.4-5.0); ALKALINE PHOSPHATASE 125 Units/L (46-116); ASPARTATE AMINO TRANSFERASE 29 Units/L (15-37); BLOOD UREA NITROGEN 26 mg/dL (7-18); CALCIUM 9.4 mg/dL (8.5-10.1); CARBON DIOXIDE 25.2 mmol/L (21-32); CHLORIDE 104 mmol/L (98-107); COR CA(FOR HYPOALB) 10.1 mg/dL (8.5-10.1); CREATININE 1.64 mg/dL (0.55-1.02); SODIUM 137 mmol/L (136-145); TOTAL PROTEIN 7.5 g/dL (6.4-8.2); eGFR NON BLACK RACES 32 (>60)
[2022-02-14] MEDS: PULMICORT NEB TX 0.5 MG NEB SCH ×2 (08:33→21:00)
[2022-02-14] MEDS: LOVENOX INJ 40 MG SYR SC SCH (09:35)
[2022-02-14] MEDS: ASPIRIN EC 81 MG PO SCH (09:36)
[2022-02-14] MEDS: LOPRESSOR TAB 25 MG PO SCH ×2 (09:36→21:09)
[2022-02-14] MEDS: COLACE CAP 100 MG PO SCH ×2 (09:36→21:12)
[2022-02-14] MEDS: LASIX PO SCH (09:36)
[2022-02-14] MEDS: NORVASC TAB 5 MG PO SCH (09:36)
[2022-02-14] MEDS: NAMENDA TAB 10 MG PO SCH ×2 (09:37→21:08)
[2022-02-14] MEDS: VSL#3 PO SCH (09:37)
--- NOTE | 2022-02-14 11:06 | PCM.PROG ---
Progress Note - Progress Note for Day of Date of Exam: 02/13/22 - Subjective Subjective: IS A 86 YEAR OLD PATIENT OF OURS. SHE IS A RESIDENT OF [facility]. SHE WAS ADMITTED INPATIENT STATUS FOR TREATMENT OF PNEUMONIA, HYPOTHERMIA, BRADYCARDIA, AND AMS. TODAY, SHE IS LAYING IN BED WITH EYES CLOSED ON MORNING ROUNDS. SHE OPENS EYES TO VERBAL STIMULI. SHE COMPLAINS OF PERSISTENT WEAKNESS AND SHORTNESS OF BREATH THIS MORNING. ON EXAMINATION, HEART IS REGULAR IN RATE AND RHYTHM. BILATERAL LUNGS ARE NOTED WITH SCATTERED WHEEZING AND RHONCHI THROUGHOUT. ABDOMEN IS ROUND, SOFT, AND NON-TENDER WITH NORMAL BOWEL SOUNDS NOTED IN ALL QUADRANTS. 1+ PITTING EDEMA NOTED TO LOWER EXTREMITIES. HER VITALS THIS MORNING ARE: 97.4-63-20-98%-164/72. SHE IS CURRENTLY UTILIZING OXYGEN VIA NASAL CANNULA AT 2 LPM. LABS WERE OBTAINED. WBC 8.3, RBC 3.89, HGB 10.7, HCT 32.3, SODIUM 138, POTASSIUM 4.5, BUN 27, CREATININE 1.63, GLUCOSE 66, CALCIUM 8.9, AST 30, ALT 38, ALK PHOS 122, BNP 720, ALBUMIN 3.0. BLOOD CULTURES ARE PENDING. A CHEST XRAY WAS OBTAINED AND REVEALED: No change cardiomegaly without congestive heart failure. No change bilateral interstitial lung changes. Possible medial right upper lobe infiltrate. Widening of the upper mediastinum which could be benign and vascular in origin however other etiologies not excluded. SHE IS CURRENTLY RECEIVING NORMAL SALINE AT KVO, ZOSYN 3.375G IV TID, DUONEBS Q4H, PULMICORT NEBS BID, LOVENOX 40MG SC DAILY, AND HER HOME MEDICATIONS WERE RESUMED. WE WILL CONTINUE WITH CURRENT PLAN OF CARE TODAY. OTHERWISE, WE PLAN TO FOLLOW-UP WITH AM LABS AND CHEST XRAY AND CONTINUE TO MONITOR. TIME SPENT ON CLINICAL ASSESSMENT, REVIWING LABS AND IMAGING, DECISION MAKING, AND DOCUMENTATION GREATER THAN 45 MINUTES. - Past Medical Family Social History Past Med/Fam/Surg Hx: No changes since H&P Allergies: Allergies codeine Allergy (Verified 01/06/20 16:25) - Review of Systems ROS: No change since H&P - Vital Signs and I&O's Vital Signs: Temperature 98.2 F Pulse Rate [Left Brachial] 73 Pulse Rate 64 Respiratory Rate 20 Blood Pressure [Left Arm] 133/83 Blood Pressure 113/55 O2 Sat by Pulse Oximetry 97 Intake and Output: Intake & Output 02/11/22 02/12/22 02/13/22 02/14/22 11:59 11:59 11:59 11:59 Intake Total 1850 / 1850 876 / 876 1281 / 1281 870 / 870 Balance 1850 / 1850 876 / 876 1281 / 1281 870 / 870 - Physical Exam Oriented: Other (intermittent confusion, history of dementia) Eyes: Normal Ear: Normal Nose: Normal Throat: Normal Respiratory: Generalized, Wheezes, Rhonchi Cardiovascular: Normal : Normal Auscultation: Bowel Sounds: Normal Palpation: Normal Tenderness: Normal Skin: Normal Musculoskeletal: Normal Psychiatric: Normal Mood Description: Calm Affect: Normal Speech Pattern: Clear, Excessive - Laboratory and Diagnostics Result Diagrams: 02/14/22 05:33 02/14/22 05:33 Labs: 02/10/22 09:34 Blood Blood Culture - Preliminary 02/10/22 09:34 Blood Blood Culture - Preliminary Laboratory WBC 8.5 X10^3/uL (3.6-10.0) 02/14/22 05:33 RBC 4.00 X10^6/uL (3.5-5.4) 02/14/22 05:33 Hgb 11.0 g/dL (12.0-16.0) L 02/14/22 05:33 Hct 33.5 % (36.0-47.0) L 02/14/22 05:33 MCV 83.8 fL (80.0-100.0) 02/14/22 05:33 MCH 27.5 pg (27.0-34.0) 02/14/22 05:33 MCHC 32.9 g/dL (33.0-35.0) L 02/14/22 05:33 RDW 16.2 % (11.6-16.5) 02/14/22 05:33 Plt Count 189 X10^3/uL (150.0-450.0) 02/14/22 05:33 MPV 9.2 fL (7.4-11.0) 02/14/22 05:33 Neut % (Auto) 71.4 % (42.0-75.0) 02/14/22 05:33 Lymph % (Auto) 14.0 % (21.0-51.0) L 02/14/22 05:33 [place] % (Auto) 11.0 % (0.0-13.0) 02/14/22 05:33 Eos % (Auto) 2.9 % (0.9-2.9) 02/14/22 05:33 Baso % (Auto) 0.7 % (0.2-1.0) 02/14/22 05:33 Neut # (Auto) 6.1 x10^3/uL (2.2-4.8) H 02/14/22 05:33 Lymph # (Auto) 1.2 X10^3/uL (1.3-2.9) L 02/14/22 05:33 [place] # (Auto) 0.9 x10^3/uL (0.3-0.8) H 02/14/22 05:33 Eos # (Auto) 0.2 x10^3/uL (0.0-0.2) 02/14/22 05:33 Baso # (Auto) 0.1 X10^3/uL (0.0-0.1) 02/14/22 05:33 Absolute Nucleated RBC 0.1 /100WBC 02/14/22 05:33 Sodium 137 mmol/L (136-145) 02/14/22 05:33 Corrected Sodium TNP 02/14/22 05:33 Potassium 4.4 mmol/L (3.5-5.1) 02/14/22 05:33 Chloride 104 mmol/L (98-107) 02/14/22 05:33 Carbon Dioxide 25.2 mmol/L (21-32) 02/14/22 05:33 BUN 26 mg/dL (7-18) H 02/14/22 05:33 Creatinine 1.64 mg/dL (0.55-1.02) H 02/14/22 05:33 Est GFR (MDRD) Af Amer 38 (>60) L 02/14/22 05:33 Est GFR (MDRD) Non-Af 32 (>60) L 02/14/22 05:33 Glucose 61 mg/dL (65-99) L 02/14/22 05:33 Lactic Acid 1.1 mmol/L (0.4-2.0) 02/10/22 09:34 Calcium 9.4 mg/dL (8.5-10.1) 02/14/22 05:33 Corrected Calcium 10.1 mg/dL (8.5-10.1) 02/14/22 05:33 Total Bilirubin 0.70 mg/dL (0.2-1.0) 02/14/22 05:33 AST 29 Units/L (15-37) 02/14/22 05:33 ALT 33 Units/L (12-78) 02/14/22 05:33 Alkaline Phosphatase 125 Units/L (46-116) H 02/14/22 05:33 Creatine Kinase 50 Units/L (26-192) 02/10/22 09:34 Troponin I High Sens 58.3 ng/L (4.0-60.0) 02/10/22 09:34 B-Natriuretic Peptide 618 pg/mL (0-79) H* 02/14/22 05:33 Total Protein 7.5 g/dL (6.4-8.2) 02/14/22 05:33 Albumin 3.1 g/dL (3.4-5.0) L 02/14/22 05:33 Globulin 4.4 g/dL (2.5-4.5) 02/14/22 05:33 Albumin/Globulin Ratio 0.7 Ratio (1.1-2.1) L 02/14/22 05:33 Specimen Type Catherized urine 02/10/22 21:46 Urine Color Pale yellow (YELLOW) 02/10/22 21:46 Urine Appearance Clear (CLEAR) 02/10/22 21:46 Urine pH 8.0 (5.0 - 8.0) 02/10/22 21:46 Ur Specific [place] 1.020 (1.000-1.030) 02/10/22 21:46 Urine Protein Negative (NEGATIVE) 02/10/22 21:46 Urine Glucose (UA) Negative (NEGATIVE) 02/10/22 21:46 Urine Ketones Negative (NEGATIVE) 02/10/22 21:46 Urine Blood Negative (NEGATIVE) 02/10/22 21:46 Urine Nitrite Negative (NEGATIVE) 02/10/22 21:46 Urine Bilirubin Negative (NEGATIVE) 02/10/22 21:46 Urine Urobilinogen Normal (NORMAL) 02/10/22 21:46 Ur Leukocyte Esterase Negative (NEGATIVE) 02/10/22 21:46 SARS-CoV-2 (PCR) Negative (NEGATIVE) 02/10/22 13:12 Influenza Type A (PCR) Negative (NEGATIVE) 02/10/22 13:12 Influenza Type B (PCR) Negative (NEGATIVE) 02/10/22 13:12 RSV (PCR) Negative (NEGATIVE) 02/10/22 13:12 - Plan (1) Pneumonia Status: Acute Qualifiers: Pneumonia type: due to unspecified organism Laterality: left Lung location: lower lobe of lung Qualified Code(s): J18.9 - Pneumonia, unspecified organism Plan: IV antibiotics. Supplemental oxygen. Bronchodilators (2) Altered mental status Status: Acute Qualifiers: Altered mental status type: transient alteration of awareness Qualified Code(s): R40.4 - Transient alteration of awareness (3) Bradycardia, severe sinus Status: Resolved (4) Hypothermia Status: Resolved Qualifiers: Encounter type: initial encounter Qualified Code(s): T68.XXXA - Hypothermia, initial encounter (5) Dementia Status: Chronic Qualifiers: Dementia type: unspecified type Dementia severity: mild Dementia behavioral or psychological symptom: unspecified whether behavioral, psychotic, or mood disturbance or anxiety Qualified Code(s): F03.A0 - Unspecified dementia, mild, without behavioral disturbance, psychotic disturbance, mood disturbance, and anxiety (6) HTN (hypertension) Status: Chronic Qualifiers: Hypertension type: primary hypertension Qualified Code(s): I10 - Essential (primary) hypertension (7) Hyperlipidemia Status: Chronic Qualifiers: Hyperlipidemia type: mixed hyperlipidemia Qualified Code(s): E78.2 - Mixed hyperlipidemia
--- NOTE | 2022-02-14 11:10 | PCM.PROG ---
Progress Note - Progress Note for Day of Date of Exam: 02/14/22 - Subjective Subjective: IS A 86 YEAR OLD PATIENT OF OURS. SHE IS A RESIDENT OF [facility]. SHE WAS ADMITTED INPATIENT STATUS FOR TREATMENT OF PNEUMONIA, HYPOTHERMIA, BRADYCARDIA, AND AMS. TODAY, SHE IS LAYING IN BED WITH EYES CLOSED ON MORNING ROUNDS. SHE OPENS EYES TO VERBAL STIMULI, BUT IS DISORIENTED UPON AWAKENING AND DOES NOT FOLLOW COMMANDS. HER FAMILY MEMBER IS AT BEDSIDE. ON EXAMINATION, HEART IS REGULAR IN RATE AND RHYTHM. BILATERAL LUNGS ARE NOTED WITH RHONCHI THROUGHOUT. ABDOMEN IS ROUND, SOFT, AND NON-TENDER WITH NORMAL BOWEL SOUNDS NOTED IN ALL QUADRANTS. TRACE EDEMA NOTED TO LOWER EXTREMITIES. HER VITALS THIS MORNING ARE: 98.2-73-20-96%-133/83. SHE IS CURRENTLY UTILIZING OXYGEN VIA NASAL CANNULA AT 2 LPM. LABS WERE OBTAINED. WBC 8.5, RBC 4.00, HGB 11.0, HCT 33.5, SODIUM 137, POTASSIUM 4.4, BUN 26, CREATININE 1.64, GLUCOSE 61, AST 29, ALT 33, ALK PHOS 125, BNP 618, TOTAL PROTEIN 7.5, ALBUMIN 3.1. BLOOD CULTURES ARE PENDING. SHE IS CURRENTLY RECEIVING NORMAL SALINE AT KVO, ZOSYN 3.375G IV TID, DUONEBS Q4H, PULMICORT NEBS BID, LOVENOX 40MG SC DAILY, AND HER HOME MEDICATIONS WERE RESUMED. WE WILL CONTINUE WITH CURRENT PLAN OF CARE TODAY. OTHERWISE, WE PLAN TO FOLLOW-UP WITH AM LABS AND CHEST XRAY AND CONTINUE TO MONITOR. TIME SPENT ON CLINICAL ASSESSMENT, REVIWING LABS AND IMAGING, DECISION MAKING, AND DOCUMENTATION GREATER THAN 45 MINUTES. - Past Medical Family Social History Past Med/Fam/Surg Hx: No changes since H&P Allergies: Allergies codeine Allergy (Verified 01/06/20 16:25) - Review of Systems ROS: No change since H&P - Vital Signs and I&O's Vital Signs: Temperature 98.2 F Pulse Rate [Left Brachial] 73 Pulse Rate 64 Respiratory Rate 20 Blood Pressure [Left Arm] 133/83 Blood Pressure 113/55 O2 Sat by Pulse Oximetry 97 Intake and Output: Intake & Output 02/11/22 02/12/22 02/13/22 02/14/22 11:59 11:59 11:59 11:59 Intake Total 1850 / 1850 876 / 876 1281 / 1281 870 / 870 Balance 1849 876 / 876 1281 / 1281 870 / 870 - Physical Exam Oriented: Other (intermittent confusion, history of dementia) Eyes: Normal Ear: Normal Nose: Normal Throat: Normal Respiratory: Generalized, Wheezes, Rhonchi Cardiovascular: Normal : Normal Auscultation: Bowel Sounds: Normal Palpation: Normal Tenderness: Normal Skin: Normal Musculoskeletal: Normal Psychiatric: Normal Mood Description: Calm Affect: Normal Speech Pattern: Clear, Excessive - Laboratory and Diagnostics Result Diagrams: 02/14/22 05:33 02/14/22 05:33 Labs: 02/10/22 09:34 Blood Blood Culture - Preliminary 02/10/22 09:34 Blood Blood Culture - Preliminary Laboratory WBC 8.5 X10^3/uL (3.6-10.0) 02/14/22 05:33 RBC 4.00 X10^6/uL (3.5-5.4) 02/14/22 05:33 Hgb 11.0 g/dL (12.0-16.0) L 02/14/22 05:33 Hct 33.5 % (36.0-47.0) L 02/14/22 05:33 MCV 83.8 fL (80.0-100.0) 02/14/22 05:33 MCH 27.5 pg (27.0-34.0) 02/14/22 05:33 MCHC 32.9 g/dL (33.0-35.0) L 02/14/22 05:33 RDW 16.2 % (11.6-16.5) 02/14/22 05:33 Plt Count 189 X10^3/uL (150.0-450.0) 02/14/22 05:33 MPV 9.2 fL (7.4-11.0) 02/14/22 05:33 Neut % (Auto) 71.4 % (42.0-75.0) 02/14/22 05:33 Lymph % (Auto) 14.0 % (21.0-51.0) L 02/14/22 05:33 [place] % (Auto) 11.0 % (0.0-13.0) 02/14/22 05:33 Eos % (Auto) 2.9 % (0.9-2.9) 02/14/22 05:33 Baso % (Auto) 0.7 % (0.2-1.0) 02/14/22 05:33 Neut # (Auto) 6.1 x10^3/uL (2.2-4.8) H 02/14/22 05:33 Lymph # (Auto) 1.2 X10^3/uL (1.3-2.9) L 02/14/22 05:33 [place] # (Auto) 0.9 x10^3/uL (0.3-0.8) H 02/14/22 05:33 Eos # (Auto) 0.2 x10^3/uL (0.0-0.2) 02/14/22 05:33 Baso # (Auto) 0.1 X10^3/uL (0.0-0.1) 02/14/22 05:33 Absolute Nucleated RBC 0.1 /100WBC 02/14/22 05:33 Sodium 137 mmol/L (136-145) 02/14/22 05:33 Corrected Sodium TNP 02/14/22 05:33 Potassium 4.4 mmol/L (3.5-5.1) 02/14/22 05:33 Chloride 104 mmol/L (98-107) 02/14/22 05:33 Carbon Dioxide 25.2 mmol/L (21-32) 02/14/22 05:33 BUN 26 mg/dL (7-18) H 02/14/22 05:33 Creatinine 1.64 mg/dL (0.55-1.02) H 02/14/22 05:33 Est GFR (MDRD) Af Amer 38 (>60) L 02/14/22 05:33 Est GFR (MDRD) Non-Af 32 (>60) L 02/14/22 05:33 Glucose 61 mg/dL (65-99) L 02/14/22 05:33 Lactic Acid 1.1 mmol/L (0.4-2.0) 02/10/22 09:34 Calcium 9.4 mg/dL (8.5-10.1) 02/14/22 05:33 Corrected Calcium 10.1 mg/dL (8.5-10.1) 02/14/22 05:33 Total Bilirubin 0.70 mg/dL (0.2-1.0) 02/14/22 05:33 AST 29 Units/L (15-37) 02/14/22 05:33 ALT 33 Units/L (12-78) 02/14/22 05:33 Alkaline Phosphatase 125 Units/L (46-116) H 02/14/22 05:33 Creatine Kinase 50 Units/L (26-192) 02/10/22 09:34 Troponin I High Sens 58.3 ng/L (4.0-60.0) 02/10/22 09:34 B-Natriuretic Peptide 618 pg/mL (0-79) H* 02/14/22 05:33 Total Protein 7.5 g/dL (6.4-8.2) 02/14/22 05:33 Albumin 3.1 g/dL (3.4-5.0) L 02/14/22 05:33 Globulin 4.4 g/dL (2.5-4.5) 02/14/22 05:33 Albumin/Globulin Ratio 0.7 Ratio (1.1-2.1) L 02/14/22 05:33 Specimen Type Catherized urine 02/10/22 21:46 Urine Color Pale yellow (YELLOW) 02/10/22 21:46 Urine Appearance Clear (CLEAR) 02/10/22 21:46 Urine pH 8.0 (5.0 - 8.0) 02/10/22 21:46 Ur Specific [place] 1.020 (1.000-1.030) 02/10/22 21:46 Urine Protein Negative (NEGATIVE) 02/10/22 21:46 Urine Glucose (UA) Negative (NEGATIVE) 02/10/22 21:46 Urine Ketones Negative (NEGATIVE) 02/10/22 21:46 Urine Blood Negative (NEGATIVE) 02/10/22 21:46 Urine Nitrite Negative (NEGATIVE) 02/10/22 21:46 Urine Bilirubin Negative (NEGATIVE) 02/10/22 21:46 Urine Urobilinogen Normal (NORMAL) 02/10/22 21:46 Ur Leukocyte Esterase Negative (NEGATIVE) 02/10/22 21:46 SARS-CoV-2 (PCR) Negative (NEGATIVE) 02/10/22 13:12 Influenza Type A (PCR) Negative (NEGATIVE) 02/10/22 13:12 Influenza Type B (PCR) Negative (NEGATIVE) 02/10/22 13:12 RSV (PCR) Negative (NEGATIVE) 02/10/22 13:12 - Plan (1) Pneumonia Status: Acute Qualifiers: Pneumonia type: due to unspecified organism Laterality: left Lung location: lower lobe of lung Qualified Code(s): J18.9 - Pneumonia, unspecified organism Plan: IV antibiotics. Supplemental oxygen. Bronchodilators (2) Altered mental status Status: Acute Qualifiers: Altered mental status type: transient alteration of awareness Qualified Code(s): R40.4 - Transient alteration of awareness (3) Bradycardia, severe sinus Status: Resolved (4) Hypothermia Status: Resolved Qualifiers: Encounter type: initial encounter Qualified Code(s): T68.XXXA - Hypothermia, initial encounter (5) Dementia Status: Chronic Qualifiers: Dementia type: unspecified type Dementia severity: mild Dementia behavioral or psychological symptom: unspecified whether behavioral, psychotic, or mood disturbance or anxiety Qualified Code(s): F03.A0 - Unspecified dementia, mild, without behavioral disturbance, psychotic disturbance, mood disturbance, and anxiety (6) HTN (hypertension) Status: Chronic Qualifiers: Hypertension type: primary hypertension Qualified Code(s): I10 - Essential (primary) hypertension (7) Hyperlipidemia Status: Chronic Qualifiers: Hyperlipidemia type: mixed hyperlipidemia Qualified Code(s): E78.2 - Mixed hyperlipidemia
--- NOTE | 2022-02-14 11:33 | RAD ---
HISTORYShortness of breathSTUDYChest AP [id number]/2022FINDINGSHypo inflation accentuates the heart size. It is likely still mildly enlarged. No definite congestive heart failure is noted. Melanie are normal. Aorta is calcified. Upper mediastinum remains widened. There does appear to be some infiltrate adjacent to the mediastinum in the right upper lobe, unchanged. Bilateral interstitial lung changes are present and unchanged. Left hemidiaphragm is chronically elevated. No pleural effusions are identified. Bony thorax is unremarkable.IMPRESSIONNo significant change from the prior examinationElectronically signed by: DAMION IBRAHIM (Feb 14, 2022 11:31:44)
[2022-02-14] MEDS: ARICEPT TAB 5 MG PO SCH (21:09)
[2022-02-14] MEDS: LIPITOR TAB 10 MG PO SCH (21:12)
[2022-02-15] MEDS: DUONEB 0.5 MG/3 MG (3 mL) NEB SCH ×6 (01:06→20:00)
[2022-02-15] MEDS: ZOSYN VIAL 3.375 GRAMS 3.375 G in NS 100 ML IV 100 ML IV SCH ×3 (05:11→21:22)
[2022-02-15 06:21] LABS: BASOPHILS # (AUTO) 0.1 X10^3/uL (0.0-0.1); BASOPHILS % (AUTO) 0.7 % (0.2-1.0); EOSINOPHILS # (AUTO) 0.1 x10^3/uL (0.0-0.2); EOSINOPHILS % (AUTO) 1.3 % (0.9-2.9); HEMATOCRIT 34.2 % (36.0-47.0); HEMOGLOBIN 11.1 g/dL (12.0-16.0); LYMPHOCYTES # (AUTO) 1.3 X10^3/uL (1.3-2.9); LYMPHOCYTES % (AUTO) 13.6 % (21.0-51.0); MEAN CORPUSCULAR HGB CONC 32.5 g/dL (33.0-35.0); MONOCYTES # (AUTO) 1.1 x10^3/uL (0.3-0.8); MONOCYTES % (AUTO) 11.4 % (0.0-13.0); NEUTROPHILS # (AUTO) 7.1 x10^3/uL (2.2-4.8); RED BLOOD COUNT 4.12 X10^6/uL (3.5-5.4); RED CELL DISTRIBUTION WIDTH 15.5 % (11.6-16.5); WHITE BLOOD COUNT 9.7 X10^3/uL (3.6-10.0)
[2022-02-15 06:24] LABS: ALANINE AMINOTRANSFERASE 29 Units/L (12-78); ALBUMIN 2.9 g/dL (3.4-5.0); ALKALINE PHOSPHATASE 114 Units/L (46-116); ASPARTATE AMINO TRANSFERASE 20 Units/L (15-37); BLOOD UREA NITROGEN 32 mg/dL (7-18); CALCIUM 8.9 mg/dL (8.5-10.1); CARBON DIOXIDE 25.5 mmol/L (21-32); CHLORIDE 104 mmol/L (98-107); COR CA(FOR HYPOALB) 9.8 mg/dL (8.5-10.1); CREATININE 1.82 mg/dL (0.55-1.02); SODIUM 139 mmol/L (136-145); TOTAL PROTEIN 7.6 g/dL (6.4-8.2); eGFR NON BLACK RACES 28 (>60)
--- NOTE | 2022-02-15 06:46 | RAD ---
HISTORYShortness of breathSTUDYChest AP [id number]/12/2022FINDINGSPati ent is rotated to the left. Heart size is now likely normal. Upper mediastinum and right suprahilar regions remain prominent. There may be some infiltrate adjacent to the mediastinum in the right upper lobe, unchanged. Underlying bilateral interstitial lung changes are present and unchanged. There is some left perihilar subsegmental atelectasis present no pleural effusions are identified.IMPRESSIONNo change hypo inflationWidened upper mediastinum and right suprahilar region for which chest CT WITH CONTRAST is recommended for further evaluationSuspect medial right upper lobe infiltrate, unchangedPerihilar subsegmental atelectasis on the leftElectronically signed by: DAMION IBRAHIM (Feb 15, 2022 06:44:31)
[2022-02-15] MEDS: PULMICORT NEB TX 0.5 MG NEB SCH ×2 (08:51→20:00)
[2022-02-15] MEDS: LOVENOX INJ 40 MG SYR SC SCH (09:42)
[2022-02-15] MEDS: ASPIRIN EC 81 MG PO SCH (09:43)
[2022-02-15] MEDS: NAMENDA TAB 10 MG PO SCH ×2 (09:43→21:22)
[2022-02-15] MEDS: NORVASC TAB 5 MG PO SCH (09:43)
[2022-02-15] MEDS: VSL#3 PO SCH (09:44)
[2022-02-15] MEDS: LASIX PO SCH (09:44)
[2022-02-15] MEDS: LOPRESSOR TAB 25 MG PO SCH ×2 (09:44→21:22)
[2022-02-15] MEDS: COLACE CAP 100 MG PO SCH ×2 (09:45→21:21)
[2022-02-15] MEDS: NS 1,000 ML IV 1,000 ML IV SCH ×2 (09:45→21:20)
--- NOTE | 2022-02-15 11:09 | PCM.PROG ---
Progress Note - Progress Note for Day of Date of Exam: 02/15/22 - Subjective Subjective: IS A 86 YEAR OLD PATIENT OF OURS. SHE IS A RESIDENT OF [facility]. SHE WAS ADMITTED INPATIENT STATUS FOR TREATMENT OF PNEUMONIA, HYPOTHERMIA, BRADYCARDIA, AND AMS. TEMPERATURE HAS BEEN NORMAL THROUGHOUT THE NIGHT. TODAY, SHE IS LYING IN BED WITH EYES CLOSED ON MORNING ROUNDS. SHE DOES NOT AWAKEN TO VERBAL STIMUI. SHE DOES MOAN AND GRIMICE TO PAINFUL STIMULI. HER DAUGHTER IS AT BEDSIDE. ON EXAMINATION, HEART IS REGULAR IN RATE AND RHYTHM. BILATERAL LUNGS ARE NOTED WITH RHONCHI THROUGHOUT. ABDOMEN IS ROUND, SOFT, AND NON-TENDER WITH NORMAL BOWEL SOUNDS NOTED IN ALL QUADRANTS. TRACE EDEMA NOTED TO LOWER EXTREMITIES. HER VITALS THIS MORNING ARE: 98.1-70-16-99%-138/60. SHE IS CURRENTLY UTILIZING OXYGEN VIA NASAL CANNULA AT 2 LPM. LABS WERE OBTAINED. WBC 9.7, RBC 4.12, HGB 11.1, HCT 34.2, SODIUM 139, POTASSIUM 4.0, BUN 32, CREAITNINE 1.82, GLUCOSE 63, CALCIUM 8.9, AST 20, ALT 29, ALK PHOS 114, BNP 207, ALBUMIN 2.9. BLOOD CULTURES ARE PENDING. SHE IS CURRENTLY RECEIVING NORMAL SALINE AT KVO, ZOSYN 3.375G IV TID, DUONEBS Q4H, PULMICORT NEBS BID, LOVENOX 40MG SC DAILY, AND HER HOME MEDICATIONS WERE RESUMED. DUE TO LOW BLOOD GLUCOSE LEVELS AND THE FACT THAT PATIENT IS NOT ALERT AND UNABLE TO EAT AT THIS TIME, WE WILL CHANGE IV FLUIDS TO D5NS AT 50 ML/HR. OTHERWISE, WE WILL CONTINUE WITH CURRENT PLAN OF CARE. WE PLAN TO FOLLOW-UP WITH AM LABS AND CHEST XRAY AND CONTINUE TO MONITOR. TIME SPENT ON CLINICAL ASSESSMENT, REVIWING LABS AND IMAGING, DECISION MAKING, AND DOCUMENTATION GREATER THAN 45 MINUTES. - Past Medical Family Social History Past Med/Fam/Surg Hx: No changes since H&P Allergies: Allergies codeine Allergy (Verified 01/06/20 16:25) - Review of Systems ROS: No change since H&P - Vital Signs and I&O's Vital Signs: Temperature 98.1 F Pulse Rate [Left Brachial] 70 Pulse Rate 68 Respiratory Rate 16 Blood Pressure [Left Arm] 138/60 Blood Pressure 113/55 O2 Sat by Pulse Oximetry 93 Intake and Output: Intake & Output 02/12/22 02/13/22 02/14/22 02/15/22 11:59 11:59 11:59 11:59 Intake Total 876 / 876 1281 / 1281 870 / 870 410 / 410 Balance 876 / 876 1281 / 1281 870 / 870 410 / 410 - Physical Exam Oriented: Unable to test Eyes: Normal Ear: Normal Nose: Normal Throat: Normal Respiratory: Generalized, Rhonchi Cardiovascular: Normal : Normal Auscultation: Bowel Sounds: Normal Palpation: Normal Tenderness: Normal Skin: Normal Musculoskeletal: Normal Psychiatric: Normal Mood Description: Calm Affect: Normal Speech Pattern: Clear, Excessive - Laboratory and Diagnostics Result Diagrams: 02/15/22 05:34 02/15/22 05:34 Labs: 02/10/22 09:34 Blood Blood Culture - Final 02/10/22 09:34 Blood Blood Culture - Final Laboratory WBC 9.7 X10^3/uL (3.6-10.0) 02/15/22 05:34 RBC 4.12 X10^6/uL (3.5-5.4) 02/15/22 05:34 Hgb 11.1 g/dL (12.0-16.0) L 02/15/22 05:34 Hct 34.2 % (36.0-47.0) L 02/15/22 05:34 MCV 83.0 fL (80.0-100.0) 02/15/22 05:34 MCH 27.0 pg (27.0-34.0) 02/15/22 05:34 MCHC 32.5 g/dL (33.0-35.0) L 02/15/22 05:34 RDW 15.5 % (11.6-16.5) 02/15/22 05:34 Plt Count 210 X10^3/uL (150.0-450.0) 02/15/22 05:34 MPV 9.0 fL (7.4-11.0) 02/15/22 05:34 Neut % (Auto) 73.0 % (42.0-75.0) 02/15/22 05:34 Lymph % (Auto) 13.6 % (21.0-51.0) L 02/15/22 05:34 [place] % (Auto) 11.4 % (0.0-13.0) 02/15/22 05:34 Eos % (Auto) 1.3 % (0.9-2.9) 02/15/22 05:34 Baso % (Auto) 0.7 % (0.2-1.0) 02/15/22 05:34 Neut # (Auto) 7.1 x10^3/uL (2.2-4.8) H 02/15/22 05:34 Lymph # (Auto) 1.3 X10^3/uL (1.3-2.9) 02/15/22 05:34 [place] # (Auto) 1.1 x10^3/uL (0.3-0.8) H 02/15/22 05:34 Eos # (Auto) 0.1 x10^3/uL (0.0-0.2) 02/15/22 05:34 Baso # (Auto) 0.1 X10^3/uL (0.0-0.1) 02/15/22 05:34 Absolute Nucleated RBC 0.0 /100WBC 02/15/22 05:34 Sodium 139 mmol/L (136-145) 02/15/22 05:34 Corrected Sodium TNP 02/15/22 05:34 Potassium 4.0 mmol/L (3.5-5.1) 02/15/22 05:34 Chloride 104 mmol/L (98-107) 02/15/22 05:34 Carbon Dioxide 25.5 mmol/L (21-32) 02/15/22 05:34 BUN 32 mg/dL (7-18) H 02/15/22 05:34 Creatinine 1.82 mg/dL (0.55-1.02) H 02/15/22 05:34 Est GFR (MDRD) Af Amer 34 (>60) L 02/15/22 05:34 Est GFR (MDRD) Non-Af 28 (>60) L 02/15/22 05:34 Glucose 63 mg/dL (65-99) L 02/15/22 05:34 Lactic Acid 1.1 mmol/L (0.4-2.0) 02/10/22 09:34 Calcium 8.9 mg/dL (8.5-10.1) 02/15/22 05:34 Corrected Calcium 9.8 mg/dL (8.5-10.1) 02/15/22 05:34 Total Bilirubin 0.80 mg/dL (0.2-1.0) 02/15/22 05:34 AST 20 Units/L (15-37) 02/15/22 05:34 ALT 29 Units/L (12-78) 02/15/22 05:34 Alkaline Phosphatase 114 Units/L (46-116) 02/15/22 05:34 Creatine Kinase 50 Units/L (26-192) 02/10/22 09:34 Troponin I High Sens 58.3 ng/L (4.0-60.0) 02/10/22 09:34 B-Natriuretic Peptide 207 pg/mL (0-79) H 02/15/22 05:34 Total Protein 7.6 g/dL (6.4-8.2) 02/15/22 05:34 Albumin 2.9 g/dL (3.4-5.0) L 02/15/22 05:34 Globulin 4.7 g/dL (2.5-4.5) H 02/15/22 05:34 Albumin/Globulin Ratio 0.6 Ratio (1.1-2.1) L 02/15/22 05:34 Specimen Type Catherized urine 02/10/22 21:46 Urine Color Pale yellow (YELLOW) 02/10/22 21:46 Urine Appearance Clear (CLEAR) 02/10/22 21:46 Urine pH 8.0 (5.0 - 8.0) 02/10/22 21:46 Ur Specific [place] 1.020 (1.000-1.030) 02/10/22 21:46 Urine Protein Negative (NEGATIVE) 02/10/22 21:46 Urine Glucose (UA) Negative (NEGATIVE) 02/10/22 21:46 Urine Ketones Negative (NEGATIVE) 02/10/22 21:46 Urine Blood Negative (NEGATIVE) 02/10/22 21:46 Urine Nitrite Negative (NEGATIVE) 02/10/22 21:46 Urine Bilirubin Negative (NEGATIVE) 02/10/22 21:46 Urine Urobilinogen Normal (NORMAL) 02/10/22 21:46 Ur Leukocyte Esterase Negative (NEGATIVE) 02/10/22 21:46 SARS-CoV-2 (PCR) Negative (NEGATIVE) 02/10/22 13:12 Influenza Type A (PCR) Negative (NEGATIVE) 02/10/22 13:12 Influenza Type B (PCR) Negative (NEGATIVE) 02/10/22 13:12 RSV (PCR) Negative (NEGATIVE) 02/10/22 13:12 - Plan (1) Pneumonia Status: Acute Qualifiers: Pneumonia type: due to unspecified organism Laterality: left Lung location: lower lobe of lung Qualified Code(s): J18.9 - Pneumonia, unspecified organism Plan: IV antibiotics. Supplemental oxygen. Bronchodilators (2) Altered mental status Status: Acute Qualifiers: Altered mental status type: transient alteration of awareness Qualified Cod e(s): R40.4 - Transient alteration of awareness (3) Bradycardia, severe sinus Status: Resolved (4) Hypothermia Status: Resolved Qualifiers: Encounter type: initial encounter Qualified Code(s): T68.XXXA - Hypothermia, initial encounter (5) Dementia Status: Chronic Qualifiers: Dementia type: unspecified type Dementia severity: mild Dementia behavioral or psychological symptom: unspecified whether behavioral, psychotic, or mood disturbance or anxiety Qualified Code(s): F03.A0 - Unspecified dementia, mild, without behavioral disturbance, psychotic disturbance, mood disturbance, and anxiety (6) HTN (hypertension) Status: Chronic Qualifiers: Hypertension type: primary hypertension Qualified Code(s): I10 - Essential (primary) hypertension (7) Hyperlipidemia Status: Chronic Qualifiers: Hyperlipidemia type: mixed hyperlipidemia Qualified Code(s): E78.2 - Mixed hyperlipidemia
[2022-02-15] MEDS: D5 NS 1,000 ML IV 1,000 ML IV SCH (13:26)
[2022-02-15] MEDS: LIPITOR TAB 10 MG PO SCH (21:21)
[2022-02-15] MEDS: ARICEPT TAB 5 MG PO SCH (21:21)
[2022-02-16] MEDS: DUONEB 0.5 MG/3 MG (3 mL) NEB SCH ×6 (00:10→21:50)
[2022-02-16] MEDS: ZOSYN VIAL 3.375 GRAMS 3.375 G in NS 100 ML IV 100 ML IV SCH ×3 (05:12→21:56)
--- NOTE | 2022-02-16 05:42 | RAD ---
HISTORYSOB HX: CAD, HTNSTUDYCHEST, 1 [id number]/13/2022FINDINGSThe trachea is midline. The cardiac silhouette is unremarkable. Mild right upper lobe infiltrate. Improved aeration in the left lung.. The bony thorax is unremarkable.IMPRESSIONMild right upper lobe infiltrate unchanged.Interval improvement in left perihilar infiltrate or subsegmental atelectasis..Electronically signed by: Roe Overton (Feb 16, 2022 05:41:10)
[2022-02-16] MEDS: D5 NS 1,000 ML IV 1,000 ML IV SCH ×2 (06:08→12:49)
[2022-02-16 06:23] LABS: BASOPHILS # (AUTO) 0.1 X10^3/uL (0.0-0.1); BASOPHILS % (AUTO) 0.7 % (0.2-1.0); EOSINOPHILS # (AUTO) 0.1 x10^3/uL (0.0-0.2); EOSINOPHILS % (AUTO) 1.6 % (0.9-2.9); HEMATOCRIT 32.7 % (36.0-47.0); HEMOGLOBIN 10.9 g/dL (12.0-16.0); LYMPHOCYTES # (AUTO) 0.8 X10^3/uL (1.3-2.9); LYMPHOCYTES % (AUTO) 10.6 % (21.0-51.0); MEAN CORPUSCULAR HEMOGLOBIN 27.9 pg (27.0-34.0); MEAN CORPUSCULAR HGB CONC 33.2 g/dL (33.0-35.0); MEAN CORPUSCULAR VOLUME 83.9 fL (80.0-100.0); MEAN PLATELET VOLUME 8.7 fL (7.4-11.0); MONOCYTES % (AUTO) 12.3 % (0.0-13.0); NEUTROPHILS % (AUTO) 74.8 % (42.0-75.0); WHITE BLOOD COUNT 8.1 X10^3/uL (3.6-10.0)
[2022-02-16 06:25] LABS: ALANINE AMINOTRANSFERASE 21 Units/L (12-78); ALBUMIN 2.6 g/dL (3.4-5.0); ALKALINE PHOSPHATASE 100 Units/L (46-116); ASPARTATE AMINO TRANSFERASE 14 Units/L (15-37); BLOOD UREA NITROGEN 29 mg/dL (7-18); CALCIUM 8.6 mg/dL (8.5-10.1); CARBON DIOXIDE 28.8 mmol/L (21-32); CHLORIDE 107 mmol/L (98-107); COR CA(FOR HYPOALB) 9.7 mg/dL (8.5-10.1); SODIUM 142 mmol/L (136-145); eGFR NON BLACK RACES 35 (>60)
[2022-02-16] MEDS: PULMICORT NEB TX 0.5 MG NEB SCH ×2 (08:18→21:50)
[2022-02-16] MEDS: NAMENDA TAB 10 MG PO SCH ×2 (09:21→20:24)
[2022-02-16] MEDS: LOPRESSOR TAB 25 MG PO SCH ×2 (09:21→20:24)
[2022-02-16] MEDS: NORVASC TAB 5 MG PO SCH (09:21)
[2022-02-16] MEDS: COLACE CAP 100 MG PO SCH ×2 (09:21→20:26)
[2022-02-16] MEDS: ASPIRIN EC 81 MG PO SCH (09:21)
[2022-02-16] MEDS: LOVENOX INJ 40 MG SYR SC SCH (09:24)
[2022-02-16] MEDS: VSL#3 PO SCH (09:24)
[2022-02-16] MEDS ORDERED: MICRO K EXTEN CAP 10 MEQ PO PRN (11:09)
[2022-02-16] MEDS ORDERED: POTASSIUM CHLORIDE LIQ 20 MEQ UDC PO PRN (11:09)
[2022-02-16] MEDS ORDERED: KLOR-CON PO PRN (11:09)
[2022-02-16] MEDS ORDERED: POTASSIUM CHL 40 MEQ/NS 0.45% 500 ML IV PRN (11:09)
[2022-02-16] MEDS ORDERED: K-RIDER 10 MEQ/NS 100 ML 10 MEQ/100 ML BAG IV PRN (11:09)
[2022-02-16] MEDS ORDERED: POTASSIUM CHL 60 MEQ/NS 0.45% 500 ML IV PRN (11:09)
[2022-02-16] MEDS: LASIX PO SCH (11:15)
[2022-02-16] MEDS: ROBITUSSIN DM PO SCH ×4 (14:11→20:26)
[2022-02-16] MEDS: MAGNESIUM SULFATE 1 GRAM/100 mL PREMIX 1 G/100 ML BAG IV PRN ×2 (14:12→15:51)
--- NOTE | 2022-02-16 20:11 | PCM.PROG ---
Progress Note - Progress Note for Day of Date of Exam: 02/16/22 - Subjective Subjective: IS A 86 YEAR OLD PATIENT OF OURS. SHE IS A RESIDENT OF [facility]. SHE WAS ADMITTED INPATIENT STATUS FOR TREATMENT OF PNEUMONIA, HYPOTHERMIA, BRADYCARDIA, AND AMS. TEMPERATURE HAS BEEN NORMAL SINCE ADMISSION. TODAY, SHE IS ALERT AND ORIENTED, SITTING UP IN BED ON MORNING ROUNDS. SHE ANSWERS QUESTIONS APPROPRIATELY AND IS ABLE TO FOLLOW COMMANDS. HER FAMILY MEMBERS ARE AT BEDSIDE. SHE COMPLAINS OF A NON-PRODUCTIVE COUGH. ON EXAMINATION, HEART IS REGULAR IN RATE AND RHYTHM. BILATERAL LUNGS ARE NOTED WITH RHONCHI THROUGHOUT. ABDOMEN IS ROUND, SOFT, AND NON-TENDER WITH NORMAL BOWEL SOUNDS NOTED IN ALL QUADRANTS. TRACE EDEMA NOTED TO LOWER EXTREMITIES. HER VITALS THIS MORNING ARE: 98.4-79-18-98%-156/68. SHE IS CURRENTLY UTILIZING OXYGEN VIA NASAL CANNULA AT 2 LPM. LABS WERE OBTAINED. WBC 8.1, RBC 3.90, HGB 10.9, HCT 32.7, SODIUM 142, POTASSIUM 3.3, CHLORIDE 107, BUN 29, CREATININE 1.50, GLUCOSE 107, CALCIUM 8.6, AST 14, ALT 21, ALK PHOS 100, BNP 140, TOTAL P ROTEIN 7.0, ALBUMIN 2.6. BLOOD CULTURES ARE PENDING. A CHEST XRAY WAS OBTAINED AND REVEALED: Mild right upper lobe infiltrate unchanged. Interval improvement in left perihilar infiltrate or subsegmental atelectasis. SHE IS CURRENTLY RECEIVING D5NS AT 50ML/HR, ZOSYN 3.375G IV TID, DUONEBS Q4H, PULMICORT NEBS BID, LOVENOX 40MG SC DAILY, AND HER HOME MEDICATIONS WERE RESUMED. TODAY, WE WILL ADD ROBITUSSIN DM 10ML PO QID. OTHERWISE, WE WILL CONTINUE WITH CURRENT PLAN OF CARE. WE PLAN TO FOLLOW-UP WITH AM LABS AND CHEST XRAY AND CONTINUE TO MONITOR. TIME SPENT ON CLINICAL ASSESSMENT, REVIWING LABS AND IMAGING, DECISION MAKING, AND DOCUMENTATION GREATER THAN 45 MINUTES. - Past Medical Family Social History Past Med/Fam/Surg Hx: No changes since H&P Allergies: Allergies codeine Allergy (Verified 01/06/20 16:25) - Review of Systems ROS: No change since H&P - Vital Signs and I&O's Vital Signs: Temperature 99.8 F Pulse Rate [Left Brachial] 66 Pulse Rate 66 Respiratory Rate 20 Blood Pressure [Left Arm] 116/58 Blood Pressure 113/55 O2 Sat by Pulse Oximetry 98 Intake and Output: Intake & Output 02/14/22 02/15/22 02/16/22 02/17/22 11:59 11:59 11:59 11:59 Intake Total 870 / 870 410 / 410 1043 / 1043 1200 / 1200 Balance 870 / 870 410 / 410 1043 / 1043 1200 / 1200 - Physical Exam Oriented: Normal Eyes: Normal Ear: Normal Nose: Normal Throat: Normal Respiratory: Generalized, Rhonchi Cardiovascular: Normal : Normal Auscultation: Bowel Sounds: Normal Palpation: Normal Tenderness: Normal Skin: Normal Musculoskeletal: Normal Psychiatric: Normal Mood Description: Calm Affect: Normal Speech Pattern: Clear - Laboratory and Diagnostics Result Diagrams: 02/16/22 05:28 02/16/22 05:28 Labs: 02/10/22 09:34 Blood Blood Culture - Final 02/10/22 09:34 Blood Blood Culture - Final Laboratory WBC 8.1 X10^3/uL (3.6-10.0) 02/16/22 05:28 RBC 3.90 X10^6/uL (3.5-5.4) 02/16/22 05:28 Hgb 10.9 g/dL (12.0-16.0) L 02/16/22 05:28 Hct 32.7 % (36.0-47.0) L 02/16/22 05:28 MCV 83.9 fL (80.0-100.0) 02/16/22 05:28 MCH 27.9 pg (27.0-34.0) 02/16/22 05:28 MCHC 33.2 g/dL (33.0-35.0) 02/16/22 05:28 RDW 16.0 % (11.6-16.5) 02/16/22 05:28 Plt Count 187 X10^3/uL (150.0-450.0) 02/16/22 05:28 MPV 8.7 fL (7.4-11.0) 02/16/22 05:28 Neut % (Auto) 74.8 % (42.0-75.0) 02/16/22 05:28 Lymph % (Auto) 10.6 % (21.0-51.0) L 02/16/22 05:28 [place] % (Auto) 12.3 % (0.0-13.0) 02/16/22 05:28 Eos % (Auto) 1.6 % (0.9-2.9) 02/16/22 05:28 Baso % (Auto) 0.7 % (0.2-1.0) 02/16/22 05:28 Neut # (Auto) 6.0 x10^3/uL (2.2-4.8) H 02/16/22 05:28 Lymph # (Auto) 0.8 X10^3/uL (1.3-2.9) L 02/16/22 05:28 [place] # (Auto) 1.0 x10^3/uL (0.3-0.8) H 02/16/22 05:28 Eos # (Auto) 0.1 x10^3/uL (0.0-0.2) 02/16/22 05:28 Baso # (Auto) 0.1 X10^3/uL (0.0-0.1) 02/16/22 05:28 Absolute Nucleated RBC 0.1 /100WBC 02/16/22 05:28 Sodium 142 mmol/L (136-145) 02/16/22 05:28 Corrected Sodium TNP 02/16/22 05:28 Potassium 3.3 mmol/L (3.5-5.1) L 02/16/22 05:28 Chloride 107 mmol/L (98-107) 02/16/22 05:28 Carbon Dioxide 28.8 mmol/L (21-32) 02/16/22 05:28 BUN 29 mg/dL (7-18) H 02/16/22 05:28 Creatinine 1.50 mg/dL (0.55-1.02) H 02/16/22 05:28 Est GFR (MDRD) Af Amer 43 (>60) L 02/16/22 05:28 Est GFR (MDRD) Non-Af 35 (>60) L 02/16/22 05:28 Glucose 107 mg/dL (65-99) H 02/16/22 05:28 Lactic Acid 1.1 mmol/L (0.4-2.0) 02/10/22 09:34 Calcium 8.6 mg/dL (8.5-10.1) 02/16/22 05:28 Corrected Calcium 9.7 mg/dL (8.5-10.1) 02/16/22 05:28 Magnesium 1.9 mg/dL (1.7-2.9) 02/16/22 05:28 Total Bilirubin 0.60 mg/dL (0.2-1.0) 02/16/22 05:28 AST 14 Units/L (15-37) L 02/16/22 05:28 ALT 21 Units/L (12-78) 02/16/22 05:28 Alkaline Phosphatase 100 Units/L (46-116) 02/16/22 05:28 Creatine Kinase 50 Units/L (26-192) 02/10/22 09:34 Troponin I High Sens 58.3 ng/L (4.0-60.0) 02/10/22 09:34 B-Natriuretic Peptide 140 pg/mL (0-79) H 02/16/22 05:28 Total Protein 7.0 g/dL (6.4-8.2) 02/16/22 05:28 Albumin 2.6 g/dL (3.4-5.0) L 02/16/22 05:28 Globulin 4.4 g/dL (2.5-4.5) 02/16/22 05:28 Albumin/Globulin Ratio 0.6 Ratio (1.1-2.1) L 02/16/22 05:28 Specimen Type Catherized urine 02/10/22 21:46 Urine Color Pale yellow (YELLOW) 02/10/22 21:46 Urine Appearance Clear (CLEAR) 02/10/22 21:46 Urine pH 8.0 (5.0 - 8.0) 02/10/22 21:46 Ur Specific [place] 1.020 (1.000-1.030) 02/10/22 21:46 Urine Protein Negative (NEGATIVE) 02/10/22 21:46 Urine Glucose (UA) Negative (NEGATIVE) 02/10/22 21:46 Urine Ketones Negative (NEGATIVE) 02/10/22 21:46 Urine Blood Negative (NEGATIVE) 02/10/22 21:46 Urine Nitrite Negative (NEGATIVE) 02/10/22 21:46 Urine Bilirubin Negative (NEGATIVE) 02/10/22 21:46 Urine Urobilinogen Normal (NORMAL) 02/10/22 21:46 Ur Leukocyte Esterase Negative (NEGATIVE) 02/10/22 21:46 SARS-CoV-2 (PCR) Negative (NEGATIVE) 02/10/22 13:12 Influenza Type A (PCR) Negative (NEGATIVE) 02/10/22 13:12 Influenza Type B (PCR) Negative (NEGATIVE) 02/10/22 13:12 RSV (PCR) Negative (NEGATIVE) 02/10/22 13:12 - Plan (1) Pneumonia Status: Acute Qualifiers: Pneumonia type: due to unspecified organism Laterality: left Lung location: lower lobe of lung Qualified Code(s): J18.9 - Pneumonia, unspecified organism Plan: IV antibiotics. Supplemental oxygen. Bronchodilators (2) Altered mental status Status: Acute Qualifiers: Altered mental status type: transient alteration of awareness Qualified Code(s): R40.4 - Transient alteration of awareness (3) Bradycardia, severe sinus Status: Resolved (4) Hypothermia Status: Resolved Qualifiers: Encounter type: initial encounter Qualified Code(s): T68.XXXA - Hypothermia, initial encounter (5) Dementia Status: Chronic Qualifiers: Dementia type: unspecified type Dementia severity: mild Dementia behavioral or psychological symptom: unspecified whether behavioral, psychotic, or mood disturbance or anxiety Qualified Code(s): F03.A0 - Unspecified dementia, mild, without behavioral disturbance, psychotic disturbance, mood disturbance, and anxiety (6) HTN (hypertension) Status: Chronic Qualifiers: Hypertension type: primary hypertension Qualified Code(s): I10 - Essential (primary) hypertension (7) Hyperlipidemia Status: Chronic Qualifiers: Hyperlipidemia type: mixed hyperlipidemia Qualified Code(s): E78.2 - Mixed hyperlipidemia
[2022-02-16] MEDS: ARICEPT TAB 5 MG PO SCH (20:24)
[2022-02-16] MEDS: LIPITOR TAB 10 MG PO SCH (20:25)
[2022-02-17] MEDS: DUONEB 0.5 MG/3 MG (3 mL) NEB SCH ×6 (00:39→20:35)
[2022-02-17] MEDS: D5 NS 1,000 ML IV 1,000 ML IV SCH ×2 (03:41→14:46)
[2022-02-17] MEDS: ZOSYN VIAL 3.375 GRAMS 3.375 G in NS 100 ML IV 100 ML IV SCH ×3 (05:16→21:36)
[2022-02-17 06:34] LABS: BASOPHILS # (AUTO) 0.1 X10^3/uL (0.0-0.1); BASOPHILS % (AUTO) 0.5 % (0.2-1.0); EOSINOPHILS # (AUTO) 0.1 x10^3/uL (0.0-0.2); EOSINOPHILS % (AUTO) 1.4 % (0.9-2.9); HEMATOCRIT 32.2 % (36.0-47.0); HEMOGLOBIN 10.6 g/dL (12.0-16.0); LYMPHOCYTES # (AUTO) 0.8 X10^3/uL (1.3-2.9); LYMPHOCYTES % (AUTO) 8.5 % (21.0-51.0); MEAN CORPUSCULAR HEMOGLOBIN 27.8 pg (27.0-34.0); MEAN CORPUSCULAR HGB CONC 33.1 g/dL (33.0-35.0); MEAN CORPUSCULAR VOLUME 84.1 fL (80.0-100.0); MEAN PLATELET VOLUME 8.8 fL (7.4-11.0); MONOCYTES # (AUTO) 1.1 x10^3/uL (0.3-0.8); NEUTROPHILS # (AUTO) 7.6 x10^3/uL (2.2-4.8); NEUTROPHILS % (AUTO) 78.6 % (42.0-75.0); RED BLOOD COUNT 3.83 X10^6/uL (3.5-5.4); RED CELL DISTRIBUTION WIDTH 16.1 % (11.6-16.5); WHITE BLOOD COUNT 9.7 X10^3/uL (3.6-10.0)
[2022-02-17 06:51] LABS: ALBUMIN 2.4 g/dL (3.4-5.0); CALCIUM 8.5 mg/dL (8.5-10.1); CARBON DIOXIDE 27.4 mmol/L (21-32); COR CA(FOR HYPOALB) 9.8 mg/dL (8.5-10.1); CREATININE 1.26 mg/dL (0.55-1.02); MAGNESIUM 2.1 mg/dL (1.7-2.9)
--- NOTE | 2022-02-17 06:52 | RAD ---
CHEST, 1 VIEWHISTORY: SOBStudy: Single view of the chest.Comparison:February 16, 2022Findings:The cardiomediastinal silhouette is normal. No change in the appearance of bilateral insterstitial and airspace opacities. Osseous structures demonstrate no acute abnormality.IMPRESSION:1. No change from prior.Electronically signed by: SHANNON TOVAR (Feb 17, 2022 06:50:38)
[2022-02-17] MEDS: PULMICORT NEB TX 0.5 MG NEB SCH ×2 (08:40→20:35)
[2022-02-17] MEDS: LOVENOX INJ 40 MG SYR SC SCH (08:58)
[2022-02-17] MEDS: COLACE CAP 100 MG PO SCH ×2 (08:58→20:27)
[2022-02-17] MEDS: LOPRESSOR TAB 25 MG PO SCH ×2 (08:59→20:27)
[2022-02-17] MEDS: ROBITUSSIN DM PO SCH ×4 (08:59→20:33)
[2022-02-17] MEDS: NORVASC TAB 5 MG PO SCH (08:59)
[2022-02-17] MEDS: K-DUR TAB 20 MEQ PO PRN (08:59)
[2022-02-17] MEDS: LASIX PO SCH (09:00)
[2022-02-17] MEDS: ASPIRIN EC 81 MG PO SCH (09:00)
[2022-02-17] MEDS: NAMENDA TAB 10 MG PO SCH ×2 (09:00→20:28)
[2022-02-17] MEDS: VSL#3 PO SCH (09:22)
[2022-02-17 19:03] VITALS: BMI 31.4
[2022-02-17] MEDS: LIPITOR TAB 10 MG PO SCH (20:26)
[2022-02-17] MEDS: ARICEPT TAB 5 MG PO SCH (20:27)
[2022-02-17] MEDS: MILK OF MAGNESIA PO PRN (21:37)
[2022-02-18] MEDS: D5 NS 1,000 ML IV 1,000 ML IV SCH ×3 (00:15→17:59)
[2022-02-18] MEDS: DUONEB 0.5 MG/3 MG (3 mL) NEB SCH ×6 (00:20→21:00)
[2022-02-18] MEDS: ZOSYN VIAL 3.375 GRAMS 3.375 G in NS 100 ML IV 100 ML IV SCH ×3 (05:10→21:34)
[2022-02-18 06:14] LABS: BASOPHILS # (AUTO) 0.1 X10^3/uL (0.0-0.1); BASOPHILS % (AUTO) 0.5 % (0.2-1.0); EOSINOPHILS # (AUTO) 0.1 x10^3/uL (0.0-0.2); EOSINOPHILS % (AUTO) 0.7 % (0.9-2.9); HEMATOCRIT 31.8 % (36.0-47.0); HEMOGLOBIN 10.5 g/dL (12.0-16.0); LYMPHOCYTES # (AUTO) 0.9 X10^3/uL (1.3-2.9); LYMPHOCYTES % (AUTO) 8.3 % (21.0-51.0); MEAN CORPUSCULAR HEMOGLOBIN 27.8 pg (27.0-34.0); MEAN CORPUSCULAR VOLUME 84.3 fL (80.0-100.0); MEAN PLATELET VOLUME 9.2 fL (7.4-11.0); MONOCYTES # (AUTO) 1.2 x10^3/uL (0.3-0.8); MONOCYTES % (AUTO) 11.4 % (0.0-13.0); NEUTROPHILS # (AUTO) 8.5 x10^3/uL (2.2-4.8); NEUTROPHILS % (AUTO) 79.1 % (42.0-75.0); RED BLOOD COUNT 3.77 X10^6/uL (3.5-5.4); WHITE BLOOD COUNT 10.7 X10^3/uL (3.6-10.0)
[2022-02-18 06:34] LABS: ALBUMIN 2.5 g/dL (3.4-5.0); CALCIUM 8.8 mg/dL (8.5-10.1); CARBON DIOXIDE 26.9 mmol/L (21-32); CREATININE 1.29 mg/dL (0.55-1.02); TOTAL PROTEIN 7.4 g/dL (6.4-8.2)
--- NOTE | 2022-02-18 08:05 | RAD ---
CHEST, 1 VIEWHISTORY:SOBStudy: Single view of the chest.Comparison:NoneFindings:Cardiomegaly and pulmonary vascular congestion. No focal consolidations, pleural effusions or pneumothorax. Osseous structures demonstrate no acute abnormality.IMPRESSION:1.Cardiomegaly and pulmonary vascular congestion.Electronically signed by: SHANNON TOVAR (Feb 18, 2022 08:03:58)
[2022-02-18] MEDS: PULMICORT NEB TX 0.5 MG NEB SCH ×2 (08:10→21:00)
[2022-02-18] MEDS: LOVENOX INJ 40 MG SYR SC SCH (09:45)
[2022-02-18] MEDS: ASPIRIN EC 81 MG PO SCH ×2 (11:48→11:51)
[2022-02-18] MEDS: COLACE CAP 100 MG PO SCH ×2 (11:51→21:27)
[2022-02-18] MEDS: NORVASC TAB 5 MG PO SCH (11:52)
[2022-02-18] MEDS: NAMENDA TAB 10 MG PO SCH ×2 (11:52→21:27)
[2022-02-18] MEDS: LOPRESSOR TAB 25 MG PO SCH ×2 (11:52→21:27)
[2022-02-18] MEDS: LASIX PO SCH (11:52)
[2022-02-18] MEDS: ROBITUSSIN DM PO SCH ×4 (11:52→21:27)
[2022-02-18] MEDS: VSL#3 PO SCH (11:52)
[2022-02-18] MEDS: LIPITOR TAB 10 MG PO SCH (21:27)
[2022-02-18] MEDS: ARICEPT TAB 5 MG PO SCH (21:27)
[2022-02-18] MEDS: MILK OF MAGNESIA PO PRN (23:42)
[2022-02-19] MEDS: DUONEB 0.5 MG/3 MG (3 mL) NEB SCH ×6 (00:45→20:42)
[2022-02-19] MEDS: ZOSYN VIAL 3.375 GRAMS 3.375 G in NS 100 ML IV 100 ML IV SCH ×3 (05:06→21:08)
[2022-02-19 06:29] LABS: BASOPHILS # (AUTO) 0.1 X10^3/uL (0.0-0.1); BASOPHILS % (AUTO) 0.6 % (0.2-1.0); EOSINOPHILS # (AUTO) 0.1 x10^3/uL (0.0-0.2); EOSINOPHILS % (AUTO) 0.6 % (0.9-2.9); HEMATOCRIT 32.4 % (36.0-47.0); HEMOGLOBIN 10.6 g/dL (12.0-16.0); LYMPHOCYTES # (AUTO) 0.8 X10^3/uL (1.3-2.9); MEAN CORPUSCULAR HEMOGLOBIN 27.5 pg (27.0-34.0); MEAN CORPUSCULAR HGB CONC 32.6 g/dL (33.0-35.0); MEAN CORPUSCULAR VOLUME 84.3 fL (80.0-100.0); MEAN PLATELET VOLUME 8.8 fL (7.4-11.0); MONOCYTES # (AUTO) 1.1 x10^3/uL (0.3-0.8); MONOCYTES % (AUTO) 10.2 % (0.0-13.0); NEUTROPHILS % (AUTO) 81.6 % (42.0-75.0); RED BLOOD COUNT 3.84 X10^6/uL (3.5-5.4); RED CELL DISTRIBUTION WIDTH 16.1 % (11.6-16.5); WHITE BLOOD COUNT 11.1 X10^3/uL (3.6-10.0)
[2022-02-19 06:41] LABS: ALANINE AMINOTRANSFERASE 18 Units/L (12-78); ALBUMIN 2.3 g/dL (3.4-5.0); ALKALINE PHOSPHATASE 95 Units/L (46-116); ASPARTATE AMINO TRANSFERASE 14 Units/L (15-37); BLOOD UREA NITROGEN 22 mg/dL (7-18); CALCIUM 8.8 mg/dL (8.5-10.1); CHLORIDE 110 mmol/L (98-107); COR CA(FOR HYPOALB) 10.2 mg/dL (8.5-10.1); COR NA(FOR HYPERGLY) 144 mmol/L (136-145); CREATININE 1.04 mg/dL (0.55-1.02); MAGNESIUM 2.2 mg/dL (1.7-2.9); SODIUM 144 mmol/L (136-145); TOTAL PROTEIN 7.6 g/dL (6.4-8.2); eGFR NON BLACK RACES 54 (>60)
--- NOTE | 2022-02-19 07:17 | RAD ---
HISTORYPneumonia SOBSTUDYPortable AP [id number] normal heart size. The right lung is grossly clear. There is a developing infiltrate in the left lower lobe. No lobar consolidation, pleural fluid is identified.IMPRESSIONInterval development of left lower lobe parenchymal density consistent with pneumonia/atelectasis.Electronically signed by: LUCIO PORTER (Feb 19, 2022 07:16:13)
[2022-02-19] MEDS: PULMICORT NEB TX 0.5 MG NEB SCH ×2 (08:10→20:42)
--- NOTE | 2022-02-19 08:53 | PCM.PROG ---
Progress Note - Progress Note for Day of Date of Exam: 02/19/22 - Subjective Subjective: IS A 86 YEAR OLD PATIENT OF OURS. SHE IS A RESIDENT OF [facility]. SHE WAS ADMITTED INPATIENT STATUS FOR TREATMENT OF PNEUMONIA, HYPOTHERMIA, BRADYCARDIA, AND AMS. TEMPERATURE HAS BEEN NORMAL SINCE ADMISSION. TODAY, SHE IS ALERT AND ORIENTED, SITTING UP IN BED ON MORNING ROUNDS. SHE ANSWERS QUESTIONS APPROPRIATELY AND IS ABLE TO FOLLOW COMMANDS. HER FAMILY MEMBERS ARE AT BEDSIDE. SHE COMPLAINS OF A NON-PRODUCTIVE COUGH. ON EXAMINATION, HEART IS REGULAR IN RATE AND RHYTHM. BILATERAL LUNGS ARE NOTED WITH RHONCHI THROUGHOUT. ABDOMEN IS ROUND, SOFT, AND NON-TENDER WITH NORMAL BOWEL SOUNDS NOTED IN ALL QUADRANTS. TRACE EDEMA NOTED TO LOWER EXTREMITIES. HER VITALS THIS MORNING ARE: 100.4-83-24-97%-168/86. SHE IS CURRENTLY UTILIZING OXYGEN VIA NASAL CANNULA AT 2 LPM. LABS WERE OBTAINED. WBC 10.7, RBC 3.77, HGB 10.5, HCT 31.8, SODIUM 143, POTASSIUM 3.4, CHLORIDE 109, BUN 23, CREATININE 1.29, GLUCOSE 112, CALCIUM 8.8, AST 15, ALT 17, ALK PHOS 95, BNP 481, TOTAL PROTEIN 7.4, ALBUMIN 2.5. A CHEST XRAY WAS OBTAINED AND REVEALED: Cardiomegaly and pulmonary vascular congestion. No focal consolidations, pleural effusions or pneumothorax. Osseous structures demonstrate no acute abnormality.SHE IS CURRENTLY RECEIVING D5NS AT 50ML/HR, ZOSYN 3.375G IV TID, DUONEBS Q4H, PULMICORT NEBS BID, ROBITUSSIN DM 10ML PO QID, LOVENOX 40MG SC DAILY, AND HER HOME MEDICATIONS WERE RESUMED. OTHERWISE, WE WILL CONTINUE WITH CURRENT PLAN OF CARE. WE PLAN TO FOLLOW-UP WITH AM LABS AND CHEST XRAY AND CONTINUE TO MONITOR. TIME SPENT ON CLINICAL ASSESSMENT, REVIWING LABS AND IMAGING, DECISION MAKING, AND DOCUMENTATION GREATER THAN 45 MINUTES. - Past Medical Family Social History Past Med/Fam/Surg Hx: No changes since H&P Allergies: Allergies codeine Allergy (Verified 01/06/20 16:25) - Review of Systems ROS: No change since H&P - Vital Signs and I&O's Vital Signs: Temperature 98.6 F Pulse Rate [Left Brachial] 83 Pulse Rate 68 Respiratory Rate 18 Blood Pressure [Left Arm] 124/72 Blood Pressure 113/55 O2 Sat by Pulse Oximetry 98 Intake and Output: Intake & Output 02/16/22 02/17/22 02/18/22 02/19/22 11:59 11:59 11:59 11:59 Intake Total 1043 / 1043 3189 / 3189 2719 / 2719 2226 / 2226 Balance 1043 / 1043 3189 / 3189 2719 / 2719 2225 / 2226 - Physical Exam Oriented: Normal Eyes: Normal Ear: Normal Nose: Normal Throat: Normal Respiratory: Generalized, Rhonchi Cardiovascular: Normal : Normal Auscultation: Bowel Sounds: Normal Palpation: Normal Tenderness: Normal Skin: Normal Musculoskeletal: Normal Psychiatric: Normal Mood Description: Calm Affect: Normal Speech Pattern: Delayed - Laboratory and Diagnostics Result Diagrams: 02/19/22 05:42 02/19/22 05:42 Labs: 02/10/22 09:34 Blood Blood Culture - Final 02/10/22 09:34 Blood Blood Culture - Final Laboratory WBC 11.1 X10^3/uL (3.6-10.0) H 02/19/22 05:42 RBC 3.84 X10^6/uL (3.5-5.4) 02/19/22 05:42 Hgb 10.6 g/dL (12.0-16.0) L 02/19/22 05:42 Hct 32.4 % (36.0-47.0) L 02/19/22 05:42 MCV 84.3 fL (80.0-100.0) 02/19/22 05:42 MCH 27.5 pg (27.0-34.0) 02/19/22 05:42 MCHC 32.6 g/dL (33.0-35.0) L 02/19/22 05:42 RDW 16.1 % (11.6-16.5) 02/19/22 05:42 Plt Count 247 X10^3/uL (150.0-450.0) 02/19/22 05:42 MPV 8.8 fL (7.4-11.0) 02/19/22 05:42 Neut % (Auto) 81.6 % (42.0-75.0) H 02/19/22 05:42 Lymph % (Auto) 7.0 % (21.0-51.0) L 02/19/22 05:42 [place] % (Auto) 10.2 % (0.0-13.0) 02/19/22 05:42 Eos % (Auto) 0.6 % (0.9-2.9) L 02/19/22 05:42 Baso % (Auto) 0.6 % (0.2-1.0) 02/19/22 05:42 Neut # (Auto) 9.0 x10^3/uL (2.2-4.8) H 02/19/22 05:42 Lymph # (Auto) 0.8 X10^3/uL (1.3-2.9) L 02/19/22 05:42 [place] # (Auto) 1.1 x10^3/uL (0.3-0.8) H 02/19/22 05:42 Eos # (Auto) 0.1 x10^3/uL (0.0-0.2) 02/19/22 05:42 Baso # (Auto) 0.1 X10^3/uL (0.0-0.1) 02/19/22 05:42 Absolute Nucleated RBC 0.0 /100WBC 02/19/22 05:42 Sodium 144 mmol/L (136-145) 02/19/22 05:42 Corrected Sodium 144 mmol/L (136-145) 02/19/22 05:42 Potassium 3.8 mmol/L (3.5-5.1) 02/19/22 05:42 Chloride 110 mmol/L (98-107) H 02/19/22 05:42 Carbon Dioxide 29.0 mmol/L (21-32) 02/19/22 05:42 BUN 22 mg/dL (7-18) H 02/19/22 05:42 Creatinine 1.04 mg/dL (0.55-1.02) H 02/19/22 05:42 Est GFR (MDRD) Af Amer > 60 (>60) 02/19/22 05:42 Est GFR (MDRD) Non-Af 54 (>60) L 02/19/22 05:42 Glucose 114 mg/dL (65-99) H 02/19/22 05:42 Lactic Acid 1.1 mmol/L (0.4-2.0) 02/10/22 09:34 Calcium 8.8 mg/dL (8.5-10.1) 02/19/22 05:42 Corrected Calcium 10.2 mg/dL (8.5-10.1) H 02/19/22 05:42 Magnesium 2.2 mg/dL (1.7-2.9) 02/19/22 05:42 Total Bilirubin 0.50 mg/dL (0.2-1.0) 02/19/22 05:42 AST 14 Units/L (15-37) L 02/19/22 05:42 ALT 18 Units/L (12-78) 02/19/22 05:42 Alkaline Phosphatase 95 Units/L (46-116) 02/19/22 05:42 Creatine Kinase 50 Units/L (26-192) 02/10/22 09:34 Troponin I High Sens 58.3 ng/L (4.0-60.0) 02/10/22 09:34 B-Natriuretic Peptide 608 pg/mL (0-79) H* 02/19/22 05:42 Total Protein 7.6 g/dL (6.4-8.2) 02/19/22 05:42 Albumin 2.3 g/dL (3.4-5.0) L 02/19/22 05:42 Globulin 5.3 g/dL (2.5-4.5) H 02/19/22 05:42 Albumin/Globulin Ratio 0.4 Ratio (1.1-2.1) L 02/19/22 05:42 Specimen Type Catherized urine 02/10/22 21:46 Urine Color Pale yellow (YELLOW) 02/10/22 21:46 Urine Appearance Clear (CLEAR) 02/10/22 21:46 Urine pH 8.0 (5.0 - 8.0) 02/10/22 21:46 Ur Specific [place] 1.020 (1.000-1.030) 02/10/22 21:46 Urine Protein Negative (NEGATIVE) 02/10/22 21:46 Urine Glucose (UA) Negative (NEGATIVE) 02/10/22 21:46 Urine Ketones Negative (NEGATIVE) 02/10/22 21:46 Urine Blood Negative (NEGATIVE) 02/10/22 21:46 Urine Nitrite Negative (NEGATIVE) 02/10/22 21:46 Urine Bilirubin Negative (NEGATIVE) 02/10/22 21:46 Urine Urobilinogen Normal (NORMAL) 02/10/22 21:46 Ur Leukocyte Esterase Negative (NEGATIVE) 02/10/22 21:46 SARS-CoV-2 (PCR) Negative (NEGATIVE) 02/10/22 13:12 Influenza Type A (PCR) Negative (NEGATIVE) 02/10/22 13:12 Influenza Type B (PCR) Negative (NEGATIVE) 02/10/22 13:12 RSV (PCR) Negative (NEGATIVE) 02/10/22 13:12 Resp Viral Panel (PCR) See scanned report 02/10/22 16:48 - Plan (1) Pneumonia Status: Acute Qualifiers: Pneumonia type: due to unspecified organism Laterality: left Lung location: lower lobe of lung Qualified Code(s): J18.9 - Pneumonia, unspecified organism Plan: IV antibiotics. Supplemental oxygen. Bronchodilators (2) Altered mental status Status: Acute Qualifiers: Altered mental status type: transient alteration of awareness Qualified Code(s): R40.4 - Transient alteration of awareness (3) Bradycardia, severe sinus Status: Resolved (4) Hypothermia Status: Resolved Qualifiers: Encounter type: initial encounter Qualified Code(s): T68.XXXA - Hypothermia, initial encounter (5) Dementia Status: Chronic Qualifiers: Dementia type: unspecified type Dementia severity: mild Dementia behavioral or psychological symptom: unspecified whether behavioral, psychotic, or mood disturbance or anxiety Qualified Code(s): F03.A0 - Unspecified dementia, mild, without behavioral disturbance, psychotic disturbance, mood disturbance, and anxiety (6) HTN (hypertension) Status: Chronic Qualifiers: Hypertension type: primary hypertension Qualified Code(s): I10 - Essential (primary) hypertension (7) Hyperlipidemia Status: Chronic Qualifiers: Hyperlipidemia type: mixed hyperlipidemia Qualified Code(s): E78.2 - Mixed hyperlipidemia
[2022-02-19] MEDS: LOVENOX INJ 40 MG SYR SC SCH (08:55)
[2022-02-19] MEDS: ASPIRIN EC 81 MG PO SCH (08:55)
[2022-02-19] MEDS: ROBITUSSIN DM PO SCH ×3 (08:55→21:08)
[2022-02-19] MEDS: LOPRESSOR TAB 25 MG PO SCH ×2 (08:56→20:59)
[2022-02-19] MEDS: COLACE CAP 100 MG PO SCH ×2 (08:57→20:59)
[2022-02-19] MEDS: NORVASC TAB 5 MG PO SCH (08:57)
[2022-02-19] MEDS: NAMENDA TAB 10 MG PO SCH ×2 (08:57→21:00)
[2022-02-19] MEDS: LASIX PO SCH (08:57)
[2022-02-19] MEDS: VSL#3 PO SCH (08:58)
[2022-02-19] MEDS: D5 NS 1,000 ML IV 1,000 ML IV SCH ×2 (15:00→16:42)
[2022-02-19] MEDS: MILK OF MAGNESIA PO PRN (20:57)
[2022-02-19] MEDS: LIPITOR TAB 10 MG PO SCH (20:59)
[2022-02-19] MEDS: ARICEPT TAB 5 MG PO SCH (20:59)
[2022-02-20] MEDS: DUONEB 0.5 MG/3 MG (3 mL) NEB SCH ×3 (01:05→09:35)
[2022-02-20] MEDS: ZOSYN VIAL 3.375 GRAMS 3.375 G in NS 100 ML IV 100 ML IV SCH ×2 (05:11→13:33)
[2022-02-20 05:53] LABS: BASOPHILS # (AUTO) 0.1 X10^3/uL (0.0-0.1); BASOPHILS % (AUTO) 0.5 % (0.2-1.0); EOSINOPHILS # (AUTO) 0.1 x10^3/uL (0.0-0.2); EOSINOPHILS % (AUTO) 1.1 % (0.9-2.9); HEMATOCRIT 30.9 % (36.0-47.0); HEMOGLOBIN 9.9 g/dL (12.0-16.0); LYMPHOCYTES % (AUTO) 7.9 % (21.0-51.0); MEAN CORPUSCULAR HEMOGLOBIN 26.9 pg (27.0-34.0); MEAN CORPUSCULAR HGB CONC 32.1 g/dL (33.0-35.0); MEAN CORPUSCULAR VOLUME 83.7 fL (80.0-100.0); MEAN PLATELET VOLUME 8.9 fL (7.4-11.0); MONOCYTES # (AUTO) 1.1 x10^3/uL (0.3-0.8); MONOCYTES % (AUTO) 8.9 % (0.0-13.0); NEUTROPHILS # (AUTO) 9.8 x10^3/uL (2.2-4.8); NEUTROPHILS % (AUTO) 81.6 % (42.0-75.0); RED BLOOD COUNT 3.69 X10^6/uL (3.5-5.4); RED CELL DISTRIBUTION WIDTH 16.4 % (11.6-16.5)
[2022-02-20 06:09] LABS: ALANINE AMINOTRANSFERASE 19 Units/L (12-78); ALBUMIN 2.1 g/dL (3.4-5.0); ALKALINE PHOSPHATASE 92 Units/L (46-116); ASPARTATE AMINO TRANSFERASE 19 Units/L (15-37); BLOOD UREA NITROGEN 18 mg/dL (7-18); CALCIUM 8.7 mg/dL (8.5-10.1); CARBON DIOXIDE 30.5 mmol/L (21-32); CHLORIDE 108 mmol/L (98-107); COR CA(FOR HYPOALB) 10.2 mg/dL (8.5-10.1); CREATININE 0.98 mg/dL (0.55-1.02); SODIUM 143 mmol/L (136-145); TOTAL PROTEIN 7.1 g/dL (6.4-8.2); eGFR NON BLACK RACES 57 (>60)
--- NOTE | 2022-02-20 08:13 | RAD ---
HISTORYPNEUMONIA; SOBSTUDYCHEST, 1 [id number] view of the chestFINDINGSPatient is rotated. The cardiac silhouette is stably enlarged. Mediastinal contours appear stable. Similar appearing left perihilar airspace opacity. Elevated left hemidiaphragm. No definite pleural effusion or pneumothorax.IMPRESSIONNo significant change compared to prior radiograph.Electronically signed by: Cabrera Watt (Feb 20, 2022 08:11:35)
[2022-02-20] MEDS: LOVENOX INJ 40 MG SYR SC SCH (08:47)
[2022-02-20] MEDS: ASPIRIN EC 81 MG PO SCH (08:48)
[2022-02-20] MEDS: LASIX PO SCH (08:48)
[2022-02-20] MEDS: ROBITUSSIN DM PO SCH ×2 (08:48→13:33)
[2022-02-20] MEDS: COLACE CAP 100 MG PO SCH (08:49)
[2022-02-20] MEDS: NAMENDA TAB 10 MG PO SCH (08:49)
[2022-02-20] MEDS: K-DUR TAB 20 MEQ PO PRN (08:50)
[2022-02-20] MEDS: NORVASC TAB 5 MG PO SCH (08:50)
[2022-02-20] MEDS: LOPRESSOR TAB 25 MG PO SCH (08:50)
[2022-02-20] MEDS: VSL#3 PO SCH (08:51)
[2022-02-20] MEDS: PULMICORT NEB TX 0.5 MG NEB SCH (09:35)
[2022-02-20] MEDS ORDERED: DULCOLAX SUPPOSITORY 10 MG RECTAL ONE ×2 (13:28→15:39)
[2022-02-20] MEDS: D5 NS 1,000 ML IV 1,000 ML IV SCH (13:33)
[2022-02-20 17:14] VITALS: BP 150/81
== END 2022-02-20 16:35 | DRG 195 ==
LOC: ER 08:44 → MED/SURG 12:54
PROVIDERS: ADMIT Podiatrist; ATTEND Internal Medicine
DX: T68.XXXA Hypothermia, initial encounter; R06.02 Shortness of breath; N18.30 Chronic kidney disease, stage 3 unspecified; R40.4 Transient alteration of awareness; Z20.822 Contact with and (suspected) exposure to COVID-19; R94.30 Abnormal result of cardiovascular function study, unspecified; E78.2 Mixed hyperlipidemia; R00.1 Bradycardia, unspecified; I25.10 Atherosclerotic heart disease of native coronary artery without angina pectoris; G30.9 Alzheimer's disease, unspecified; I10 Essential (primary) hypertension; F41.8 Other specified anxiety disorders; J18.8 Other pneumonia, unspecified organism